=== PATIENT | male | born 1965 | race Caucasian/White ===

== ENCOUNTER 2024-02-10 11:29 | Emergency (ER) | payer SELFPAY ==
[2024-02-10 11:32] VITALS: BP 141/69
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
== END 2024-02-10 13:04 | disposition home or self-care (01) ==
LOC: EMR 11:29
PROVIDERS: EMERGENCY PHYSICIAN Emergency Medicine
DX: S22.31XA Fracture of one rib, right side, initial encounter for closed fracture (principal); V49.40XA Driver injured in collision with unspecified motor vehicles in traffic accident, initial encounter; I10 Essential (primary) hypertension; E53.8 Deficiency of other specified B group vitamins
CPT/HCPCS: 99283; 71101

== ENCOUNTER 2024-04-19 12:26 | Emergency (ER) | payer SELFPAY ==
[2024-04-19 12:28] VITALS: BP 170/87
[2024-04-19 12:53] LABS: % Basophils 0.6 % (0-2); % Immature Granulocytes 0.6 % (0-0.5); % Lymphocytes 13.7 % (20.5-51.1); % Monocytes 6.3 % (1.7-9.3); % Neutrophils 78.8 % (42.2-75.2); Absolute Lymphocytes 0.7 10^3/uL (1.2-3.4); Absolute Monocytes 0.3 10^3/uL (0.1-0.6); Hematocrit 41.7 % (39.0-52.0); Hemoglobin 14.7 g/dL (13.0-18.0); Mean Corp Hgb Conc. 35.3 g/dL (33.0-37.0); Mean Corpuscular Hgb 41.8 pg (27.0-31.0); Mean Corpuscular Volume 118.5 fL (80.0-94.0); Mean Platelet Volume 8.7 fL (7.4-10.4); Nucleated Red Blood Cells % 0 % (-); Platelet Count 110 10^3/uL (130-400); Red Blood Cell Count 3.52 10^6/uL (4.70-6.10); Red Cell Dist. Width 15.1 % (11.5-14.5); White Blood Cell Count 5.1 10^3/uL (4.8-10.8)
[2024-04-19 12:58] LABS: ALT (SGPT) 40 U/L (0-50); AST (SGOT) 98 U/L (17-59); Albumin 3.9 g/dl (3.5-5.0); Alkaline Phosphatase 104 U/L (38-126); Blood Urea Nitrogen 8 mg/dl (9-20); Calcium 8.7 mg/dl (8.4-10.2); Carbon Dioxide 30 mmol/L (22-30); Chloride 103 mmol/L (98-107); Glucose 135 mg/dl (70-99); Potassium 4.1 mmol/L (3.5-5.1); Sodium 140 mmol/L (135-145); Total Bilirubin 1.8 mg/dl (0.2-1.3); Total Protein 7.1 g/dl (6.3-8.2); eGFR > 60.00
[2024-04-19] MEDS: ZOFRAN ODT (ORALLY DISINTEGRATING) 4 MG PO (13:08)
[2024-04-19 13:09] VITALS: BMI 23.8
[2024-04-19 13:10] LABS: COVID-19 Antigen Negative (Negative)
[2024-04-19] MEDS: DUONEB 3 ML INH (13:41)
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
== END 2024-04-19 14:23 | disposition home or self-care (01) ==
LOC: EMR 12:26
PROVIDERS: Student in an Organized Health Care Education/Training Program; EMERGENCY PHYSICIAN Emergency Medicine
DX: J20.9 Acute bronchitis, unspecified (principal); Z11.52 Encounter for screening for COVID-19; I10 Essential (primary) hypertension; M10.9 Gout, unspecified; E53.8 Deficiency of other specified B group vitamins; Z90.49 Acquired absence of other specified parts of digestive tract
CPT/HCPCS: 99283; 94640; 71046; 80053; 85025; 87502; 87811

== ENCOUNTER 2024-05-16 23:13 | Inpatient (IN) | payer OTHER, SELFPAY ==
[2024-05-16 17:34] VITALS: BP 147/90
[2024-05-16 18:08] LABS: % Basophils 0.4 % (0-2); % Immature Granulocytes 0.4 % (0-0.5); % Lymphocytes 10.4 % (20.5-51.1); % Monocytes 8.2 % (1.7-9.3); % Neutrophils 80.6 % (42.2-75.2); Absolute Basophils 0.1 10^3/uL (0-0.2); Absolute Immature Granulocytes 0.1 10^3/uL (0-0.05); Absolute Lymphocytes 1.2 10^3/uL (1.2-3.4); Absolute Neutrophils 9.6 10^3/uL (1.4-6.5); Hematocrit 37.3 % (39.0-52.0); Hemoglobin 13.5 g/dL (13.0-18.0); Mean Corp Hgb Conc. 36.2 g/dL (33.0-37.0); Mean Corpuscular Volume 121.5 fL (80.0-94.0); Mean Platelet Volume 8.9 fL (7.4-10.4); Nucleated Red Blood Cells % 0 % (-); Platelet Count 123 10^3/uL (130-400); Red Blood Cell Count 3.07 10^6/uL (4.70-6.10); Red Cell Dist. Width 14.6 % (11.5-14.5); White Blood Cell Count 11.9 10^3/uL (4.8-10.8)
[2024-05-16 18:09] LABS: Urine Albumin Negative (Neg - Trace); Urine Bilirubin 1+ (Negative); Urine Character Clear (Clear); Urine Color Amber; Urine Glucose Negative (Negative); Urine Ketone Trace (Negative); Urine Leukocyte Trace (Negative); Urine Nitrite Negative (Negative); Urine Occult Blood Negative (Negative); Urine Urobilinogen 2+ (Neg - 1+)
[2024-05-16 18:30] LABS: NT-proBNP 177 pg/ml
[2024-05-16 18:31] LABS: ALT (SGPT) 46 U/L (0-50); AST (SGOT) 122 U/L (17-59); Albumin 4.2 g/dl (3.5-5.0); Alkaline Phosphatase 123 U/L (38-126); Blood Urea Nitrogen 11 mg/dl (9-20); Carbon Dioxide 27 mmol/L (22-30); Chloride 96 mmol/L (98-107); Glucose 93 mg/dl (70-99); Potassium 4.5 mmol/L (3.5-5.1); Sodium 135 mmol/L (135-145); Total Bilirubin 2.3 mg/dl (0.2-1.3); Total Protein 7.2 g/dl (6.3-8.2); eGFR > 60.00
[2024-05-16 18:32] LABS: Lipase 81 U/L (23-300)
[2024-05-16 18:37] LABS: Urine Red Blood Cell 0-2 /HPF (0-2); Urine White Cell 0-2 /HPF (0-5)
--- NOTE | 2024-05-16 19:32 | ED.GENMED ---
History of Present Illness
<ASHLEY Deal - Last Filed: 05/16/24 22:54>
General
Chief Complaint: Swelling
Source: patient
Exam Limitations: none
Time Seen by Provider: 05/16/24 19:30
History of Present Illness
History of Present Illness:
This is a 58 year old male that comes in with c/o left leg swelling. States that on Tuesday night he felt discomfort in the left testicle. States that the discomfort is still there and it is like a pinching discomfort. Then yesterday he noticed that
his left leg was swollen. States that he felt he had a lump in his thigh. States that he is not eating much as he doesn't have any appetite. States that he has had abd pain with nausea, vomiting. States that he also felt lightheaded. Denies any
fever, chills, chest pain, SOB, diarrhea, headache, urinary burning.
Past History
<ASHLEY Deal - Last Filed: 05/16/24 22:54>
Past History
ED Past Medical History: HTN and Other (Gout, malnutrition, alcohol use with B12/folate deficiency. cardiomyopathy, elevated LFt's, Bronchitis with rib fracture)
ED Past Surgical History: Cholecystectomy and Other (Hernia)
Patient has exhibited threatening behavior?: No
Social History
Tobacco: Non-smoker
Alcohol: Daily (Vodka 6 oz)
Drug: Marijuana
Personal:
Living: with roommate (Resides with a roommate)
Employment: Employed
Family History
Family History: Other (Noncontributory)
Review of Systems
<ASHLEY Deal - Last Filed: 05/16/24 22:54>
Review of Systems
All Other Systems: ROS reviewed and negative except as documented in HPI and ROS
Constitutional: Reports no symptoms; Denies fever or chills
EENT: Reports no symptoms
Respiratory: Reports no symptoms; Denies cough or trouble breathing
Cardiac: Reports no symptoms; Denies chest pain
ABD/GI: Reports abdominal pain, nausea and vomiting; Denies diarrhea
: Reports no symptoms; Denies dysuria, frequency or urgency
Musculoskeletal: Reports edema (Bilateral edema Legs l>R. +2 pitting edema)
Skin: Reports no symptoms
Neurological: Reports other (Lightheaded); Denies dizzy or headache
Psychiatric: Reports no symptoms
Phy Exam
<ASHLEY Deal - Last Filed: 05/16/24 22:54>
General Physical Exam
General Presentation: no apparent distress
General age: appears stated age
General Skin: warm and dry
General Habitus: normal
General Mental: alert
General Hydration: appears well hydrated
ENT Exam
ENT Exam: TM's normal, pharynx normal and neck supple
Eye Exam
Eye Exam: EOMI
Cardiovascular Exam
Cardiovascular Exam: regular rate/rhythm, no murmur and normal peripheral pulses
Pulmonary Exam
Pulmonary Exam: lungs clear, no respiratory distress, no rales, chest non tender, no crackles, no rhonchi, no wheezing and no cough
Gastrointestinal Exam
Gastrointestinal Exam: normal bowel sounds, non tender, soft, no organomegaly, no pulsatile mass and non distended
Genitourinary Exam Male
Exam Male: circumcised, no discharge, normal external genitalia, normal testicular exam, no evidence of trauma, no lesions, no testicular swelling and no testicular tenderness
Musculoskeletal Exam
Musculoskeletal Exam: full ROM and edema (+2 pitting edema L>R)
Skin Exam
Skin Exam: normal color, warm/dry and no petechia
Psychiatric Exam
Psychiatric Exam: normal mood/affect
Scores
<ASHLEY Deal - Last Filed: 05/16/24 22:54>
Heart Failure Risk
Heart Failure Risk Score: Not Applicable
Course
<ASHLEY Deal - Last Filed: 05/16/24 22:54>
Orders/Labs/Results
Orders:
Orders
05/16/24 17:38
US Legs, Left [US Periph Venous LOWER Ext LT] Urgent
Comment:
Reason For Exam: swelling
05/16/24 17:58
BNP [NT-proBNP] Urgent
Complete Blood Count/With Diff Urgent
Comprehensive Metabolic Panel Urgent
Lipase Urgent
Urine Culture Reflexed from UA [Urinalysis Reflex To Culture] Urgent
Date Specimen was Collected: 05/16/24
Time Specimen was Collected: 17:37
Urine Microscopic Reflex Cult Urgent
05/16/24 19:32
US Scrotum Urgent
Comment:
Reason For Exam: left testicle swelling
05/16/24 20:55
Ondansetron Orally Disint [Zofran Odt (Orally Disintegrating)] 4 mg .ROUTE .STK-MED ONE
05/16/24 20:56
Ondansetron Orally Disint [Zofran Odt (Orally Disintegrating)] 4 mg PO NOW STA
05/16/24 21:39
CT Abd/pelvis W Iv Cont Urgent
Comment:
Reason For Exam: extensive clot in left leg.
05/16/24 21:51
PT/INR [Prothrombin Time] Urgent
PTT Urgent
Comment: ADD ON
05/16/24 22:48
Consult Vascular Surgery [Vascular Surgery Consult] Urgent
Consulting Provider: Shahbaz Perry
Was physician already notified: Yes
Heparin 7,000 units IV NOW STA
Nursing to Place Non Medication Order As Directed
Physician Order: PTT 6 hours after initial start of Heparin infusion
05/16/24 22:50
Add On- LAB Urgent
Tests Added?: PTT
05/16/24 22:55
Heparin 7,000 units IV PRN PRN
05/16/24 22:56
Heparin 3,500 units IV PRN PRN
05/16/24 23:00
Heparin 13315 Units/250 ml 25,000 units in 250 ml IV PER PROTOCOL
Weight to be used for heparin protocol in kilograms (kg):: 87.4
Protocol:: DVT/PE
PTT Goal Range to be used:: PTT 73 to 111 seconds
Order type:: Initial
INITIAL Infusion Dose (UNITS/KG/hr) & then follow protocol:: 18 units/kg/hr
Infusion Dose in UNITS/hr & then follow protocol (UNITS/hr):: 1,600
INFUSION RATE in mL/hr & then follow protocol (mL/hr):: 16
For DVT/PE algorithm, re-bolus for low PTT?: Yes
PTT less than or equal to 64 seconds:: Re-bolus 80 units/kg (max 10,000units). Increase by 300 units/hr
(+ 3mL/hr)
PTT 64.1 to 72.9 seconds:: Re-bolus 40 units/kg (max 5,000 units). Increase by 200 units/hr
(+ 2mL/hr)
PTT 73 to 111 seconds:: Target Range. No change in rate.
PTT 111.1 to 130.9 seconds:: Decrease rate by 200 units/hr (- 2 mL/hr)
PTT 131 to 199.9 seconds:: HOLD for 1 hr. Then decrease by 300 units/hr (- 3mL/hr)
PTT greater than or equal to 200 seconds:: HOLD for 2 hrs & Notify Provider. Then decrease by 300 units/hr
(- 3mL/hr)
Lab follow-up:: Each change, PTT q6h until 2 consecutive are therapeutic. Then
PTT daily.
Abnormal Lab Results
05/16/24 05/16/24
17:58 21:51
WBC 11.9 H 10^3/uL
(4.8-10.8)
RBC 3.07 L 10^6/uL
(4.70-6.10)
Hct 37.3 L %
(39.0-52.0)
MCV 121.5 H fL
(80.0-94.0)
MCH 44.0 H pg
(27.0-31.0)
RDW 14.6 H %
(11.5-14.5)
Plt Count 123 L 10^3/uL
(130-400)
Abs Immat Gran (auto) 0.1 H 10^3/uL
(0-0.05)
Absolute Neuts (auto) 9.6 H 10^3/uL
(1.4-6.5)
Absolute Monos (auto) 1.0 H 10^3/uL
(0.1-0.6)
Neutrophils % 80.6 H %
(42.2-75.2)
Lymphocytes % 10.4 L %
(20.5-51.1)
PT 14.8 H Sec
(11.4-14.6)
Chloride 96 L mmol/L
(98-107)
Total Bilirubin 2.3 H mg/dl
(0.2-1.3)
AST 122 H U/L
(17-59)
Urine Ketones Trace A
(Negative)
Urine Bilirubin 1+ A
(Negative)
Urine Urobilinogen 2+ A
(Neg - 1+)
Leukocyte Esterase Rfl Trace A
(Negative)
05/16/24 17:58
05/16/24 17:58
Leukocytosis, Plt slightly low. Chloride low. Total gigi elevation. AST elevation (chronic due to alcohol abuse), Urine negative for infection. Lipase normal at 81, PT 14.8 with INR 1.15
Vital Signs
Initial and Last Documented VS:
Initial Vital Signs
Temp Pulse Resp BP Pulse Ox
98.1 F 86 20 147/90 99
05/16/24 17:34 05/16/24 17:34 05/16/24 17:34 05/16/24 17:34 05/16/24 17:34
Last Documented Vital Signs
Temp Pulse Resp BP Pulse Ox
98.1 F 84 17 132/78 95
05/16/24 17:34 05/16/24 23:00 05/16/24 23:00 05/16/24 22:34 05/16/24 23:00
<Gamaliel Lai, DO - Last Filed: 05/16/24 23:05>
Orders/Labs/Results
Orders:
Orders
05/16/24 17:38
US Legs, Left [US Periph Venous LOWER Ext LT] Urgent
Comment:
Reason For Exam: swelling
05/16/24 17:58
BNP [NT-proBNP] Urgent
Complete Blood Count/With Diff Urgent
Comprehensive Metabolic Panel Urgent
Lipase Urgent
Urine Culture Reflexed from UA [Urinalysis Reflex To Culture] Urgent
Date Specimen was Collected: 05/16/24
Time Specimen was Collected: 17:37
Urine Microscopic Reflex Cult Urgent
05/16/24 19:32
US Scrotum Urgent
Comment:
Reason For Exam: left testicle swelling
05/16/24 20:55
Ondansetron Orally Disint [Zofran Odt (Orally Disintegrating)] 4 mg .ROUTE .STK-MED ONE
05/16/24 20:56
Ondansetron Orally Disint [Zofran Odt (Orally Disintegrating)] 4 mg PO NOW STA
05/16/24 21:39
CT Abd/pelvis W Iv Cont Urgent
Comment:
Reason For Exam: extensive clot in left leg.
05/16/24 21:51
PT/INR [Prothrombin Time] Urgent
PTT Urgent
Comment: ADD ON
05/16/24 22:48
Consult Vascular Surgery [Vascular Surgery Consult] Urgent
Consulting Provider: Shahbaz Perry
Was physician already notified: Yes
Heparin 7,000 units IV NOW STA
Nursing to Place Non Medication Order As Directed
Physician Order: PTT 6 hours after initial start of Heparin infusion
05/16/24 22:50
Add On- LAB Urgent
Tests Added?: PTT
05/16/24 22:55
Heparin 7,000 units IV PRN PRN
05/16/24 22:56
Heparin 3,500 units IV PRN PRN
05/16/24 23:00
Heparin 20556 Units/250 ml 25,000 units in 250 ml IV PER PROTOCOL
Weight to be used for heparin protocol in kilograms (kg):: 87.4
Protocol:: DVT/PE
PTT Goal Range to be used:: PTT 73 to 111 seconds
Order type:: Initial
INITIAL Infusion Dose (UNITS/KG/hr) & then follow protocol:: 18 units/kg/hr
Infusion Dose in UNITS/hr & then follow protocol (UNITS/hr):: 1,600
INFUSION RATE in mL/hr & then follow protocol (mL/hr):: 16
For DVT/PE algorithm, re-bolus for low PTT?: Yes
PTT less than or equal to 64 seconds:: Re-bolus 80 units/kg (max 10,000units). Increase by 300 units/hr
(+ 3mL/hr)
PTT 64.1 to 72.9 seconds:: Re-bolus 40 units/kg (max 5,000 units). Increase by 200 units/hr
(+ 2mL/hr)
PTT 73 to 111 seconds:: Target Range. No change in rate.
PTT 111.1 to 130.9 seconds:: Decrease rate by 200 units/hr (- 2 mL/hr)
PTT 131 to 199.9 seconds:: HOLD for 1 hr. Then decrease by 300 units/hr (- 3mL/hr)
PTT greater than or equal to 200 seconds:: HOLD for 2 hrs & Notify Provider. Then decrease by 300 units/hr
(- 3mL/hr)
Lab follow-up:: Each change, PTT q6h until 2 consecutive are therapeutic. Then
PTT daily.
Abnormal Lab Results
05/16/24 05/16/24
17:58 21:51
WBC 11.9 H 10^3/uL
(4.8-10.8)
RBC 3.07 L 10^6/uL
(4.70-6.10)
Hct 37.3 L %
(39.0-52.0)
MCV 121.5 H fL
(80.0-94.0)
MCH 44.0 H pg
(27.0-31.0)
RDW 14.6 H %
(11.5-14.5)
Plt Count 123 L 10^3/uL
(130-400)
Abs Immat Gran (auto) 0.1 H 10^3/uL
(0-0.05)
Absolute Neuts (auto) 9.6 H 10^3/uL
(1.4-6.5)
Absolute Monos (auto) 1.0 H 10^3/uL
(0.1-0.6)
Neutrophils % 80.6 H %
(42.2-75.2)
Lymphocytes % 10.4 L %
(20.5-51.1)
PT 14.8 H Sec
(11.4-14.6)
Chloride 96 L mmol/L
(98-107)
Total Bilirubin 2.3 H mg/dl
(0.2-1.3)
AST 122 H U/L
(17-59)
Urine Ketones Trace A
(Negative)
Urine Bilirubin 1+ A
(Negative)
Urine Urobilinogen 2+ A
(Neg - 1+)
Leukocyte Esterase Rfl Trace A
(Negative)
05/16/24 17:58
05/16/24 17:58
Vital Signs
Initial and Last Documented VS:
Initial Vital Signs
Temp Pulse Resp BP Pulse Ox
98.1 F 86 20 147/90 99
05/16/24 17:34 05/16/24 17:34 05/16/24 17:34 05/16/24 17:34 05/16/24 17:34
Last Documented Vital Signs
Temp Pulse Resp BP Pulse Ox
98.1 F 84 17 132/78 95
05/16/24 17:34 05/16/24 23:00 05/16/24 23:00 05/16/24 22:34 05/16/24 23:00
<ASHLEY Deal - Last Filed: 05/16/24 22:54>
MDM/Problems Addressed
Differential Diagnosis Includes:
DVT, epididymitis,
MDM/Problems Addressed:
This is a 58 year old male that comes in with c/o left left swelling and left testicular discomfort.
will get labs, US of scrotum and left leg.
Spoke with Dr. Perry and reviewed US. He will come see patient. Will also get CT of abd/pelvis with IV contrast. Into see patient. explained that he has extensive clot burden in the left leg. Explained that he will be seen by the Vascular
surgeon and that he will get betting a CT with IV contrast.
Explained to patient that he will be admitted and started on Heparin. He will be seen again tomorrow for Possible Thrombectomy. Hospitalist notified about admission. .
Chronic conditions affecting care:
NA
Acute Exacerbation and/or Progression of Chronic Illness:
NA
<ASHLEY Deal - Last Filed: 05/16/24 22:54>
*Radiology
Radiology exam reviewed: radiology read reviewed (US scrotum-Small right and moderate left hydroceles. Prominent left sided pampiniform plexus with venous thrombosis. US left leg-extensive left lower extremity DVT. CT-No significant acute
abnormality identified in the abd or pelvis, as described above. Left lower extremity DVT is seen to) and other (CT cont- begin at the level of the left common femoral vein. Patient left external iliac vein and more proximal veins. )
*Pulse Oximetry
Patient hypoxic: no
*EKG
Interpreted by ED Provider?: NA
Rate: EKG- N/A
*Dye Room Helper Interpretation
Rate: Dye Room Helper- N/A
*Critical Care Note
Total Time (30-74mins, 75-104mins- exclusive of procedures): Not Applicable
ED Attending Note
<ASHLEY Deal - Last Filed: 05/16/24 22:54>
-
Portions of this chart may have been created with voice recognition software.� Occasional wrong word or��sound alike� substitutions may have occurred due to the inherent limitations of voice recognition software.
<Gamaliel Lai DO - Last Filed: 05/16/24 23:05>
ED Attending Note
I performed the substantive portion of visit, reviewed & personally made and approve the management plan that is documented in note by myself or PAT.: Yes
Discharge Plan
Departure
Patient Disposition: Admit
Date of Disposition: 05/16/24
Time of Disposition: 22:51
Admit to: Telemetry
Presentation/result/management discussed w/ accepting MD/DO: Hospitalist
Patient with high blood pressure during this ER visit?: Yes
Condition: Good
Covid-19: Not Applicable
Discharge Problem:
Extensive DVT left leg
Prescriptions:
No Action
ibuprofen 200 mg Capsule
600 mg PO Q8HPRN PRN (Reason: mild pain)
Referrals:
NONE,* [Family Provider] -
Interventions
Interventions:
*Risk Screen - Suicide Last Done: 05/16/24 17:34
*General Assessment Last Done: 05/16/24 17:34
*Neglect/Abuse Screening Last Done: 05/16/24 17:34
*ED COVID-19 Vaccine History Last Done: 05/16/24 20:35
ED- Cardiac Assessment Last Done: 05/16/24 20:57
ED- Pulmonary Assessment Last Done: 05/16/24 20:57
ED-Skin Assessment Last Done: 05/16/24 20:57
Discharge Date and Time
Print Language: MONEGASQUE
[2024-05-16] MEDS: ZOFRAN ODT (ORALLY DISINTEGRATING) 4 MG PO (20:56)
[2024-05-16 20:57] VITALS: BMI 25.4
[2024-05-16 21:48] VITALS: BP 135/78
[2024-05-16 22:19] LABS: INR 1.15; PT 14.8 Sec (11.4-14.6)
[2024-05-16 22:34] VITALS: BP 132/78
[2024-05-16 22:59] LABS: APTT 27.2 Sec (23.4-35.0)
[2024-05-16 23:00] VITALS: BP 119/74
[2024-05-16] MEDS: HEPARIN 7000 UNITS IV (23:19)
--- NOTE | 2024-05-16 23:20 | HPS.HSE ---
Family Physician
-
Family Physician: * NONE
Chief Complaint
-
Left Lower Ext and Scrotal Swelling
History of Present Illness
Patient is a 58 y/o male past medical history of non-ischemic cardiomyopathy with recovered EF and alcohol use disorder who presents with increased swelling of his left lower extremity and scrotum. Patient reports two night ago he noted a bulge in
his groin area associated with some scrotal swelling. Yesterday he noted his left lower extremity to be swollen. Work-up in the emergency department revealed an extensive left lower extremity DVT. Patient denies any prior history of blood clots.
He denies any recent travel or recent surgeries.
Medical History
Past Medical History
Past Medical History: Reports Other
Additional Past Medical History:
Alcohol Use Disorder
Non-Ischemic Cardiomyopathy
Gout
Past Surgical History: Reports Other
Additional Past Surgical History:
Cholecystectomy
Umbilical Herniorrhaphy
Social History
Tobacco: Non-smoker
Alcohol: Daily (6-8 ounces of vodka nightly)
Drug: Marijuana and Other (No history of IVDA)
Family History
Family History: Other (Father / Brother / Sister - Cardiomyopathy)
Allergies / Home Medications
Allergies reflects when Allergies were last updated in [facility].
Home Medications with original date entered in [facility]
Allergy/Medication List:
Allergies
Allergy/AdvReac Type Severity Reaction Status Date / Time
Penicillins Allergy unknown - Verified 05/16/24 17:34
as a child
Home Medications
ibuprofen 200 mg capsule 600 mg PO Q8HPRN PRN mild pain 05/16/24
Review of Systems
-
A 12 point ROS was completed and negative except as noted: Yes
Constitutional: Denies Fever, Weight Loss or Chills
Respiratory: Denies Trouble Breathing
Cardiac: Denies Chest Pain or Palpitations
Abdomen/GI: Reports Anorexia
Physical Exam
Vital Signs
Vital Signs
Temp Pulse Resp BP Pulse Ox
98.1 F 86 17 119/74 98
05/16/24 17:34 05/16/24 23:15 05/16/24 23:15 05/16/24 23:00 05/16/24 23:15
Physical Exam
General: Comfortable and Conversant
HEENT: Anicteric and Moist mucous membranes
Respiratory: Clear and Non Labored Respirations
Cardiac: S1/S2 and Regular Rhythm; No Tachycardia
GI: Soft and Non Tender
Rectal: Deferred by Provider
Musculoskeletal: No Clubbing, No Cyanosis and Other (LLE wrapped in compression pablo wrap)
Skin: Warm and Dry
Neuro: Awake, Alert, Oriented and Nonfocal/grossly intact
Laboratory Results
-
05/16/24 17:58
05/16/24 17:58
Laboratory Results
PT 14.8 Sec (11.4-14.6) H 05/16/24 21:51
INR 1.15 05/16/24 21:51
APTT Cancelled 05/16/24 22:48
Total Bilirubin 2.3 mg/dl (0.2-1.3) H 05/16/24 17:58
AST 122 U/L (17-59) H 05/16/24 17:58
ALT 46 U/L (0-50) 05/16/24 17:58
Alkaline Phosphatase 123 U/L (38-126) 05/16/24 17:58
Lipase 81 U/L (23-300) 05/16/24 17:58
Data Reviewed
-
Lab Data: Labs Reviewed by me
Impression/Plan
-
Extensive Left Lower Ext DVT involving left common femoral, femoral, popliteal and posterior tibial veins, as well as enous thrombosis of the left sided pampiniform plexus
-At this point in time appears to be unprovoked
-Continue heparin drip
-Vascular Surgery consulted by ED and planning for thrombectomy in AM
-Consult Urology
Alcohol Use Disorder
-Continue alcohol withdrawal protocol
-Continue thiamine and folic acid
Non-Ischemic Cardiomyopathy with Recovered EF
-Echo Jun 2023 EF 55-60%
-Monitors Is&Os
Code Status: Full Code
[2024-05-16] MEDS: HEPARIN 25000 UNITS/250 ML IV (23:21)
--- NOTE | 2024-05-16 23:43 | W.PN.UPDATE ---
Update Note
Progress Note Update
This is an addendum to the H&P written by ANDREW Capone on 05/16/2024.
58-year-old male without any notable past medical history presenting with left testicle discomfort, left groin swelling and left leg swelling. Peripheral venous ultrasound showed extensive left lower extremity DVT. CT abdomen pelvis shows DVT
beginning at the level of the left common femoral vein. Scrotal ultrasound shows small right and moderate left hydroceles, prominent left-sidedp paphiniform plexus with venous thrombosis.
Unprovoked DVT unclear etiology. Heparin drip. N.p.o. for thrombectomy tomorrow as per vascular. Urology consulted.
[2024-05-17] VITALS (33 sets, daily range): BP systolic 106–149; BP diastolic 65–96; BMI 18.9
[2024-05-17] MEDS: ZOFRAN 4 MG IV (01:59)
--- NOTE | 2024-05-17 02:50 | PTCARENOTE ---
Received patient from ED RN to room 3365 via stretcher. Patient received with heparin gtt at 1600 units/hr. Pt's AAOx3 and able to make his needs known. MSAS 1. Last alcoholic drink per the patient was on Tuesday 05/15. complains of nausea. The
patient asked to get OOB to the bathroom. Bedrest order, DVT, and heparin gtt provided. Risk for DVT breaking and heparin bleeding risk discussed with the patient. Pt verbalized understanding. Denies pain. VSS on the monitor. Doppler pulse to left
femoral artery. +3 edema to left lower extremity. Left leg is wrapped with pablo bandage. Pt has occasional and nonproductive cough. Diminished breath sounds at the bases. +BS. Urinal at the bedside. Zofran ordered and administered. Bed in the lowest
position. Call hoyt and urinal are within reach. Full assessment as noted on the flowsheet.
[2024-05-17 04:11] LABS: Mean Corp Hgb Conc. 36.6 g/dL (33.0-37.0); Mean Corpuscular Hgb 42.6 pg (27.0-31.0); Mean Corpuscular Volume 116.5 fL (80.0-94.0); Red Blood Cell Count 2.49 10^6/uL (4.70-6.10); Red Cell Dist. Width 14.8 % (11.5-14.5); White Blood Cell Count 7.1 10^3/uL (4.8-10.8)
[2024-05-17 04:14] LABS: Hemoglobin 10.6 g/dL (13.0-18.0)
--- NOTE | 2024-05-17 04:32 | PTCARENOTE ---
Patient reassessed. Tachypneic on the monitor with RR 25-33. Pt's SpO2 drops to 88% on RA while asleep, then recovers to 94%. Offered oxygen via nasal cannula to the patient and explained need. The patient declined. HR in the 70s. Pt's Hgb 10.6. SAP DATA ANALYST
made aware. No further changes.
[2024-05-17 04:51] LABS: Blood Urea Nitrogen 14 mg/dl (9-20); Calcium 8.2 mg/dl (8.4-10.2); Carbon Dioxide 27 mmol/L (22-30); Chloride 100 mmol/L (98-107); Estimated Creatinine Clearance > 125 ml/min; Glucose 91 mg/dl (70-99); Magnesium 1.4 mg/dl (1.6-2.3); Phosphorus 3.5 mg/dl (2.5-4.5); Potassium 4.3 mmol/L (3.5-5.1); Sodium 132 mmol/L (135-145); eGFR > 60.00
[2024-05-17] MEDS: MAGNESIUM SULFATE 50 IV (05:14)
--- NOTE | 2024-05-17 05:40 | PTCARENOTE ---
Patient's magnesium is 1.4. Magnesium sulfate 2 gram ordered and administered.
[2024-05-17 05:42] LABS: APTT 157.5 Sec (23.4-35.0)
[2024-05-17 07:06] LABS: Mean Platelet Volume 9.6 fL (7.4-10.4); Platelet Count 86 10^3/uL (130-400)
--- NOTE | 2024-05-17 07:07 | CON.INTV ---
Consultation
Consultation Request
Date/Time Consultation Requested: 05/17/24
Date/Time Consultation Performed: 05/17/24
Performing Provider: Cheri
Reason for Consultation: ICU
Medical History
-
History of Present Illness:
Patient is a 58-year-old male with previous history of any cardiomyopathy preserved EF presenting with increased swelling of his left lower extremity and scrotum. Ultrasound performed in the emergency room demonstrating extensive left-sided DVT.
Placed on IV heparin gtt and admitted to ICU for thrombectomy 05/17/24.
Past Medical History
Past Medical History: Other (see list below)
Social History
Tobacco: Non-smoker
Alcohol: Daily
Drug: None
Family History
Family History: Reviewed & Not Pertinent
Allergies / Home Medications
Allergies
Allergy/AdvReac Type Severity Reaction Status Date / Time
Penicillins Allergy unknown - Verified 05/16/24 17:34
as a child
Home Medications
�Medication �Instructions �Recorded �Confirmed �Last Taken �Type
ibuprofen 200 mg capsule 600 mg PO Q8HPRN PRN mild pain 05/16/24 05/16/24 1 Week Ago History
~05/09/24
Review of Systems
-
History Source: Patient
All other systems: Negative unless noted
Vitals / Labs / Diagnostic Testing
Vital Signs
Temp Pulse Resp BP Pulse Ox
98 F 75 24 118/65 91
05/17/24 04:30 05/17/24 04:15 05/17/24 04:15 05/17/24 04:00 05/17/24 04:15
Lab Data
05/17/24 03:49
05/17/24 03:49
Laboratory Results
05/16/24 05/16/24 05/17/24
21:51 22:48 05:18
PT 14.8 H
INR 1.15
APTT 27.2 Cancelled 157.5 H*
Diagnostic Testing:
Physical Exam
-
HEENT: Normocephalic, Anicteric and Moist Mucous Membranes
Cardiovascular: S1/S2 and Regular Rhythm
Respiratory: Clear and Non-Labored Respirations
GI: Soft, Non Distended and Non Tender
Neurology: Awake, Alert, Oriented, AO x 3 and No Motor Deficits
Skin: Warm, Dry and Good Color
General: Comfortable and Other (NAD)
Assessment
-
Patient is a 58-year-old male with previous history of any cardiomyopathy preserved EF presenting with increased swelling of his left lower extremity and scrotum. Ultrasound performed in the emergency room demonstrating extensive left-sided DVT.
Placed on IV heparin gtt and admitted to ICU for thrombectomy 05/17/24.
Acute LLE DVT
Scrotal swelling/small right and moderate left hydroceles
Thrombocytopenia
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
Alcohol Use Disorder-Daily use (6-8 ounces of vodka nightly)
Non-Ischemic Cardiomyopathy
Gout
Cholecystectomy
Umbilical Herniorrhaphy
Plan
No current signs of metabolic encephalopathy or MS changes/following commands
Denies pain at this time.
ETOH use disorder noted, MSAS added, no tremors noted
Pain/sedation: MSAS PRN
RASS goals: 0
Hemodynamically stable, not requiring pressors.
Cardiac history reviewed--NICM with recovered EF
Prior ECHO reviewed indicating normal function
Monitor on telemetry
Oxygen needs: stable on RA
Prior history of lung disease: none
Supplemental O2 as indicated to maintain sats > 89%
CXR/CT reviewed indicating NAD
NPO, resume diet when able/postop
Order Picker recommendations
Aspiration precautions, HOB > 30 degrees
Speech therapy eval can be considered if at elevated risk
GI prophylaxis if indicated for mechanical ventilation >48 hours, prior history of GERD, stress ulcer formation in the critically ill
Creat at baseline, no history of renal disease
Void trials
Follow urine output, critical I/Os
Replete electrolytes as needed
No signs/symptoms suspicious for infectious etiology at this time
Observe off antibiotics for now
Follow fever trend, WBC count
LLE DVT, no history of VTE in past
CBC stable, plt count noted--likely from heparin, can hold if <50
Planning for thrombectomy, vasc following
DVT prophylaxis as assessed based on risk, including mechanical SCDs
Can transfuse if indicated for Hb <7, plt < 10
INR WNL
No prior h/o diabetes or thyroid disease
Monitor accuchecks PRN/SS coverage if needed
We will follow
Diagnostic Data
Chest X-Ray: 04/19/24- No acute cardiopulmonary process.
CT Scan: AP 05/16/24- 1. No significant acute abnormality identified in the abdomen or pelvis, as described above.
2. Left lower extremity DVT is seen to begin at the level of the left common femoral vein. Patent left external iliac vein and more proximal veins.
LE US 05/16/24- Findings: Occlusive thrombus throughout the left common femoral, femoral, and popliteal veins, as well as in the left posterior tibial vein. Nonvisualization of the left peroneal vein. There is also occlusive thrombus within the left
greater saphenous vein at the saphenofemoral junction extending through the proximal to mid thigh.
Echo: 07/18/23- Normal biventricular size and systolic function without regional wall motion abnormality. Estimated LVEF 55-60%. No significant valve disease. Compared to 03/19/22: LVEF has improved from 35-40% to 55-60%, and apical wall motion
abnormalities have resolved.
PFT's:
Reports and relevant images were personally reviewed.
-----
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
--- NOTE | 2024-05-17 07:34 | PTCARENOTE ---
vitals filed from previous shift, unable to verify, not physically present.
--- NOTE | 2024-05-17 07:43 | CON.VAS ---
Consultation
Consultation Request
Date/Time Consultation Performed: 05/17/2024 0800
Requesting Provider: Hospitalist
Performing Provider: Sarah Jimenes NP-Cassie for Beto Killian MD
Reason for Consultation: Extensive left lower extremity edema/DVT
Medical History
-
Chief Complaint: Left lower extremity DVT
History of Present Illness:
This is a 58-year-old male with unprovoked left lower extremity DVT who reports that symptoms started 2 days ago. Noted symptoms in his left side of the scrotum as well as left leg significant swelling. That is what prompted him to come to the
emergency room. No provoking factors. Denies prolonged car rides. Denies prolonged flights. No recent hospitalizations. No recent illnesses. No history of malignancies that he is aware of. No prior DVTs. No family history of DVTs.
On exam left lower extremity thigh and calf are soft (wrapped currently) but easily compressible. Compartments all soft. Feet are warm and pink and well-perfused. Motor/sensory fully intact.
Duplex reviewed. CT scan reviewed. Extensive left lower extremity DVT, but does not extend above the common femoral. It is however occlusive in the common femoral vein.
Note platelets are in the 80,000 range. However looking back patient has had chronic thrombocytopenia.
Plan/acute unprovoked DVT.
� Recommend hematology evaluation for unprovoked DVT as well as thrombocytopenia.
� Discussed with patient management of acute DVT. Discussed anticoagulation and compression. Discussed iliofemoral DVT management with potential for catheter directed thrombolysis for this subset of DVTs to mitigate post thrombotic syndrome
symptoms down the line. He is 58 years old and therefore it is reasonable to offer him that. I discussed these options with them. Discussed catheter-based procedures including catheter-based thrombolysis as well as mechanical thrombectomy. He
has no contraindications to thrombolysis (denies any recent stroke/head bleed/GI bleeds/major surgeries recently/other). He understands all and understands his options. He wishes to proceed with an invasive therapy. Will plan catheter-based
possible thrombolysis versus mechanical thrombectomy today.
Past Medical History
Past Medical History: Other ( cardiomyopathy preserved EF)
Social History
Tobacco: Non-Smoker
Alcohol: Chronic Alcoholic
Allergies / Home Medications
Allergy/AdvReac Type Severity Reaction Status Date / Time
Penicillins Allergy unknown - Verified 05/16/24 17:34
as a child
�Medication �Instructions �Recorded �Confirmed �Type
ibuprofen 200 mg capsule 600 mg PO Q8HPRN PRN mild pain 05/16/24 05/16/24 History
Review of Systems
-
History Source: Patient
Constitutional: Reports No Symptoms
EENT: Reports No Symptoms
Respiratory: Reports No Symptoms
Abdomen/GI: Reports No Symptoms
: Reports Other (left sided scrotal edema )
Musculoskeletal: Reports Edema (left lower extremity edema )
Skin: Reports No Symptoms
Neurological: Reports No Symptoms
Endocrine: Reports No Symptoms
Physical Exam
Vital Signs
Temp Pulse Resp BP Pulse Ox
98.2 F 76 13 118/71 94
05/17/24 07:35 05/17/24 07:30 05/17/24 07:30 05/17/24 07:00 05/17/24 07:35
Lab Results
05/17/24 03:49
05/17/24 03:49
[id number] Pept 177 pg/ml 05/16/24 17:58
Physical Exam
General: No Apparent Distress and Comfortable
HEENT: Normocephalic, Anicteric and Atraumatic
Cardiac: Negative JVD
GI: Soft, Non Tender and Non Distended
Musculoskeletal: Edema (+2 LLE edema )
Skin: Warm and Dry
Neuro: AO x 3
Pulses: Bilateral Femoral: +2 and Right Dorsalis Pedis: +2
Assessment / Plan
-
Assessment: 58 year old male with unprovoked DVT
Plan:
Recommend hematology evaluation for unprovoked DVT as well as thrombocytopenia
Discussed with patient management of acute DVT. Discussed anticoagulation and compression. Discussed iliofemoral DVT management with potential for catheter directed thrombolysis for this subset of DVTs to mitigate post thrombotic syndrome
symptoms down the line. He is 58 years old and therefore it is reasonable to offer him that. Discussed catheter-based procedures including catheter-based thrombolysis as well as mechanical thrombectomy. He has no contraindications to thrombolysis
(denies any recent stroke/head bleed/GI bleeds/major surgeries recently/other). He understands all and understands his options.
He wishes to proceed with an invasive therapy. Will plan catheter-based possible thrombolysis versus mechanical thrombectomy today.
NPO
I performed this shared service with the attending. I evaluated the patient [id number] and have entered clinical documentation as shown in the encounter note. I performed the following component(s): history and physical exam. Note that medical
decision making is not final until attested by vascular attending.
--- NOTE | 2024-05-17 07:44 | W.PN.UPDATE ---
Update Note
Progress Note Update
Seen and examined with MAEVE Jimenes. Full consultation to follow. Briefly 58-year-old male with unprovoked left lower extremity DVT about 2 days ago symptoms started. Noted symptoms in his left side of the scrotum as well as left leg significant
swelling. That is what prompted him to come to the emergency room. No provoking factors. Denies prolonged car rides. Denies prolonged flights. No recent hospitalizations. No recent illnesses. No history of malignancies that he is aware of.
No prior DVTs. No family history of DVTs. On exam left lower extremity thigh and calf are soft (wrapped currently) but easily compressible. Compartments all soft. Feet are warm and pink and well-perfused. Motor/sensory fully intact.
Duplex reviewed. CT scan reviewed. Extensive left lower extremity DVT, but does not extend above the common femoral. It is however occlusive in the common femoral vein.
Note platelets are in the 80,000 range. However looking back patient has had chronic thrombocytopenia.
Plan/acute unprovoked DVT.
� Recommend hematology evaluation for unprovoked DVT as well as thrombocytopenia.
� Discussed with patient management of acute DVT. Discussed anticoagulation and compression. Discussed iliofemoral DVT management with potential for catheter directed thrombolysis for this subset of DVTs to mitigate post thrombotic syndrome
symptoms down the line. He is 58 years old and therefore it is reasonable to offer him that. I discussed these options with them. Discussed catheter-based procedures including catheter-based thrombolysis as well as mechanical thrombectomy. He
has no contraindications to thrombolysis (denies any recent stroke/head bleed/GI bleeds/major surgeries recently/other). He understands all and understands his options. He wishes to proceed with an invasive therapy. Will plan catheter-based
possible thrombolysis versus mechanical thrombectomy today.
--- NOTE | 2024-05-17 07:54 | W.PN.HOSP.TC ---
Today's Communication/Plan
-
IV fluids
Monitor for alcohol withdrawal
Psychiatry consult
N.p.o.
Assessment / Plan
Assessment / Plan
Gen-AAOx3, NAD
HEENT-NC, AT, anicteric, clear oral mm
Neck-supple
CV-reg, no M, +S1/S2
Lungs-clear B/L
Abd-soft, NT, ND
Ext-no edema, left lower extremity Alexei wrap
Musculoskeletal-no cyanosis, clubbing
Skin-warm and dry
Neuro-grossly non-focal
Psych-calm, cooperative
Acute extensive left lower extremity DVT -unprovoked apparently. Ultrasound confirms occlusive thrombus throughout the left common femoral, femoral, and popliteal veins, as well as left posterior tibial vein. Currently on IV heparin infusion.
Vascular surgery planning on thrombectomy today. Anticipate long-term anticoagulation on discharge.
Hyponatremia -132 today. Suspect hyponatremia related to alcohol abuse. Differential also includes volume depletion. Normal saline IV fluid ordered.
Hypomagnesemia -replete intravenously.
Bilateral hydroceles -related to extensive DVT. I see no indication for urology consult. Discussed with Dr. Olivier.
Severe alcohol use disorder -Daily drinker. High risk for alcohol withdrawal syndrome. Continue alcohol withdrawal protocol. Counseled on strict need for abstinence given need for anticoagulation on discharge. High risk for bleeding. Patient
seems to understand and wants to quit. Will request psychiatry consult for assistance.
High AST to ALT ratio suggests ongoing drinking.
Hx pancytopenia -white blood cell count currently normal but other parameters are low. Differential diagnosis includes alcohol induced bone marrow suppression versus underlying cirrhosis versus other causes. Strict alcohol abstinence recommended
and will need ongoing follow-up after discharge. Monitor platelet count closely on anticoagulation, 86,000 today.
Hx Gout
History of nonischemic cardiomyopathy -recovered EF.
Marijuana use disorder
Full code
Anticipated Discharge: > 48 hours
Subjective/Interval History
-
Date of Service: May 17, 2024
Patient seen and examined. No complaints currently other than thirst.
Objective Data
-
Labs:
Laboratory Results
05/16/24 05/16/24 05/17/24
21:51 22:48 03:49
WBC 7.1
Hgb 10.6 L D
Hct 29.0 L
Plt Count 86 L D
PT 14.8 H
INR 1.15
APTT 27.2 Cancelled
Sodium 132 L
Potassium 4.3
Chloride 100
Carbon Dioxide 27
BUN 14
Creatinine 0.7
Glucose 91
Calcium 8.2 L
05/17/24 05/17/24
05:18 12:45
WBC
Hgb
Hct
Plt Count
PT
INR
APTT 157.5 H* Pending
Sodium
Potassium
Chloride
Carbon Dioxide
BUN
Creatinine
Glucose
Calcium
Vital Signs:
Vital Signs
Temp Pulse Resp BP Pulse Ox
98.2 F 76 13 118/71 94
05/17/24 07:35 05/17/24 07:30 05/17/24 07:30 05/17/24 07:00 05/17/24 07:35
I&O
05/16/24 05/17/24 05/18/24
06:59 06:59 06:59
Intake Total 64 / 64 50 / 50
Balance 64 / 64 50 / 50
Review of Systems
-
History Source: Patient
All other systems: Reviewed and negative
[2024-05-17] MEDS: NSS 1000 IV ×2 (08:04→19:44)
[2024-05-17] MEDS: THIAMINE INJECTION 200 MG IV ×2 (08:04→19:52)
[2024-05-17] MEDS: FOLVITE 1 MG PO (08:04)
--- NOTE | 2024-05-17 08:30 | PTCARENOTE ---
recd pt 0715 handoff in room, pulses verified bilat LE. heparin gtt infuses new rate, IV sites both intact. in good spirits, denies symptoms of w/d at this time, reviewed plan. seen by vascular surgical team, aware of plans for OR later today.
discussed activity with team, okay with BSC or stand to void if needed at this time preop. per vascular order, clear liquids until 11 am then NPO for OR later. OOB to bsc for bm mixed with urine large amounts of both. back to bed, gait steady,
pablo wrap maintained LLE. rest of assessment as documented.
[2024-05-17 08:38] LABS: Direct Bilirubin 0.6 mg/dl (0.0-0.4)
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
--- NOTE | 2024-05-17 12:30 | PTCARENOTE ---
seen by Dr. Alatorre, sleeping unless disturbed. NPO for OR since 1100. call hoyt in reach. CMS to LLE unchanged, remains wrapped and elevated. PTT drawn and sent.
--- NOTE | 2024-05-17 13:06 | CM ---
CM following re: discharge planning.
Discussed in Rounds, reviewed pt's chart, met with pt.
Pt is a 58 year old male, admitted with primary dx of Acute extensive left lower extremity DVT with significant h/o alcohol abuse.
Pt reports he lives with a room mate in a 2SH, 2 steps to enter, has 2 grown children. 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 Pt admitted to significant h/o alcohol abuse, has met with [facility] in the past. pt
stated he signed in with [facility] outpatient [facility] program in the past and never went there. Pt expressed his agreement to meet with [facility] team to discuss available resources. Pt stated 'I am not drinking anymore because of what happened to me'.
Pt corrected himself that he will not drink anymore and last drink he had day prior to admission to .
Pt agrees to meet with [facility] team[facility] A referral to [facility] made, spoke to CRS Dameon and he will meet with pt tomorrow. Pt is to OR today.
Pt has no insurance, [facility] following. Per previous notes, pt was referred to [facility] and pt stated he heard about it and never been there. CM called [facility] and left a message regarding referring the pt to them.
Psychiatry consult noted.
D/C plan: home with [facility] to follow and to follow up with [facility]
CM will follow with discharge plan updates as hospitalization progresses
[2024-05-17 13:19] LABS: APTT 78.7 Sec (23.4-35.0)
[2024-05-17] MEDS: HEPARIN 25000 UNITS/250 ML IV (17:12)
--- NOTE | 2024-05-17 17:23 | PTCARENOTE ---
sent to OR with OR staff. 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 heparin continues as prescribed. in good spirits. visited with clergy. questions answered.
--- NOTE | 2024-05-17 17:25 | W.SUR.PREOP ---
Pre-Operative Surgical Note
-
I have examined this patient prior to the performance of the scheduled procedure.
The patient's condition is unchanged from the time of the current History and
Physical and the patient is able to undergo the scheduled procedure.
[2024-05-17] MEDS: HEPARIN 25000 UNITS/250 ML VEN SHEATH (18:45)
[2024-05-17] MEDS: CATHFLO/ACTIVASE 16 ML INF CATH ×2 (18:45→22:23)
[2024-05-17] MEDS: CATHFLO/ACTIVASE 16 MG INF CATH ×2 (18:45→22:23)
--- NOTE | 2024-05-17 18:58 | OR.RPT ---
Operative Report
Operative Report
PROCEDURE DATE: 05/17/2024
Preoperative diagnosis: Acute left lower extremity DVT involving complete occlusion of the left common femoral vein.
Postoperative diagnosis: Same
Procedure:
1. Duplex assisted left popliteal venous access.
2. Left lower extremity ascending venogram and central venogram.
3. Initiation of catheter directed thrombolysis.
Surgeon: Constantin
Volunteer Manager: None
Complications: None
Anesthesia: Local, sedation
Indications for procedure:
Patient with acute DVT and significant swelling/pain. Given common femoral involvement, we discussed the option of catheter directed thrombolysis or mechanical thrombectomy. Risk/benefits/alternatives were also discussed. Patient understood all
wish to proceed.
Description of procedure:
Patient was identified, brought to the operating room. Placed on the table in the PRONE position. After the adequate administration of anesthesia, the patient was prepped and draped in the standard surgical fashion. A standard preoperative
timeout was undertaken and everybody was in agreement with the plan.
The left popliteal vein was punctured with a micropuncture kit under direct duplex ultrasound guidance. A 8 Uzbek sheath was then advanced over a 0.035 inch wire. Ascending venogram was obtained that demonstrated significant occlusion/clot
throughout the femoral vein and common femoral vein. I great difficulty actually advancing my wire initially in the distal femoral vein more centrally. However using a flopping on hydrophilic wire and a glide catheter was finally able to advance
my wire. It appeared to follow the course of the normal femoral vein. However advancing my catheter was slightly tough (this was just a 4 Uzbek glide catheter). I advanced the catheter though to the external iliac vein and a central venogram was
obtained which demonstrated patent central venous system. There was clot however noted in the common femoral vein that appeared to be occlusive. Given the difficulty I had advancing my 4 Uzbek glide catheter, I felt that a mechanical thrombectomy
catheter/system would be too challenging to pass through here. Therefore I then exchanged for a Storq wire and then a 5 Uzbek 40 cm infusion length multi-sidehole infusion catheter. The distal aspect/central aspect was positioned at the femoral
head just at the end of the clot. In the proximal/peripheral most aspect was positioned just outside the sheath. 6 mg of tPA was instilled through this catheter as a bolus. The sheath was then hooked up to a heparin drip at 500 units/h. The
catheter was hooked up to a tPA infusion at 1 mg/h. The sheath was secured to the skin and the catheter secured to the sheath.
The patient tolerated procedure well.
[2024-05-17 19:09] LABS: Hepatitis C Antibody Negative (Negative)
--- NOTE | 2024-05-17 19:20 | PTCARENOTE ---
back from OR at 1845, handoff with alteplase/ns, sheath heparin. IV fluids as ordered. see vascular checks. denies urge to void, no c/o pain. requesting 'food', clear liquids given as ordered. positioned for comfort. aware to keep L leg
straight. tegaderms maintained posterior L leg. family visiting.
[2024-05-17] MEDS: NSS 1000 INF CATH (19:42)
[2024-05-17] MEDS: NSS IV (19:43)
[2024-05-17] MEDS: VANCOCIN 200 IV (19:52)
[2024-05-17 20:14] LABS: Hematocrit 28.4 % (39.0-52.0); Hemoglobin 10.5 g/dL (13.0-18.0); Platelet Count 72 10^3/uL (130-400)
[2024-05-17 20:26] LABS: INR 1.14; PT 14.6 Sec (11.4-14.6)
[2024-05-17 20:27] LABS: APTT 35.6 Sec (23.4-35.0); Fibrinogen 234 MG/DL (199-459)
--- NOTE | 2024-05-17 22:35 | PTCARENOTE ---
Rec'd care of patient at 1930. Patient alert and oriented. VSS. NSR on tele monitor. Hand off validation with day shift RN for tPA/Heparin through popliteal vein catheter/sheath. Patient verbalizing understanding that LLE must remain straight. DP
pulse palpable. Extremity pink and warm.
[2024-05-18] VITALS (28 sets, daily range): BP systolic 101–159; BP diastolic 62–108; BMI 25.3
--- NOTE | 2024-05-18 00:12 | PTCARENOTE ---
Assessment unchanged. VSS.
--- NOTE | 2024-05-18 01:23 | PTCARENOTE ---
No void since post op. Patient denying urge to void throughout shift. Urinal provided and patient encouraged to try and go. Patient able to void 222 cc's of jim urine.
[2024-05-18] MEDS: CATHFLO/ACTIVASE 16 MG INF CATH ×4 (02:09→14:03)
[2024-05-18] MEDS: CATHFLO/ACTIVASE 16 ML INF CATH ×4 (02:09→14:03)
[2024-05-18 02:20] LABS: Hematocrit 27.3 % (39.0-52.0); Hemoglobin 10.1 g/dL (13.0-18.0); Mean Corpuscular Hgb 43.7 pg (27.0-31.0); Mean Corpuscular Volume 118.2 fL (80.0-94.0); Mean Platelet Volume 9.2 fL (7.4-10.4); Platelet Count 64 10^3/uL (130-400); Red Blood Cell Count 2.31 10^6/uL (4.70-6.10); Red Cell Dist. Width 14.8 % (11.5-14.5)
[2024-05-18 02:33] LABS: APTT 34.4 Sec (23.4-35.0); Fibrinogen 210 MG/DL (199-459); INR 1.16; PT 14.8 Sec (11.4-14.6)
[2024-05-18 02:44] LABS: ALT (SGPT) 30 U/L (0-50); AST (SGOT) 79 U/L (17-59); Albumin 2.7 g/dl (3.5-5.0); Alkaline Phosphatase 76 U/L (38-126); Blood Urea Nitrogen 12 mg/dl (9-20); Calcium 7.8 mg/dl (8.4-10.2); Carbon Dioxide 26 mmol/L (22-30); Chloride 103 mmol/L (98-107); Direct Bilirubin 0.9 mg/dl (0.0-0.4); Estimated Creatinine Clearance > 125 ml/min; Glucose 82 mg/dl (70-99); Magnesium 1.7 mg/dl (1.6-2.3); Sodium 132 mmol/L (135-145); Total Bilirubin 2.1 mg/dl (0.2-1.3); Total Protein 5.1 g/dl (6.3-8.2); eGFR > 60.00
[2024-05-18] MEDS: MAGNESIUM SULFATE 100 IV (05:40)
--- NOTE | 2024-05-18 07:10 | W.PN.INTV ---
Today's Communication / Plan
Recommendations
s/p lytic placement, doing well
No pain, tylenol PRN
Plan for return to OR today, remains NPO
Can advance diet when cleared by vas team
Assessment
-
Patient is a 58-year-old male with previous history of any cardiomyopathy preserved EF presenting with increased swelling of his left lower extremity and scrotum. Ultrasound performed in the emergency room demonstrating extensive left-sided DVT.
Placed on IV heparin gtt and admitted to ICU for thrombectomy 05/17/24.
Acute LLE DVT s/p Initiation of catheter directed thrombolysis 05/17/24
Scrotal swelling/small right and moderate left hydroceles
Thrombocytopenia
Conditions present OR ASSISTANT
Alcohol Use Disorder-Daily use (6-8 ounces of vodka nightly)
Non-Ischemic Cardiomyopathy
Gout
Cholecystectomy
Umbilical Herniorrhaphy
Plan
No current signs of metabolic encephalopathy or MS changes/following commands
Denies pain at this time.
ETOH use disorder noted, MSAS added, no tremors noted
Pain/sedation: MSAS PRN
RASS goals: 0
Hemodynamically stable, not requiring pressors.
Cardiac history reviewed--NICM with recovered EF
Prior ECHO reviewed indicating normal function
Monitor on telemetry
Oxygen needs: stable on RA
Prior history of lung disease: none
Supplemental O2 as indicated to maintain sats > 89%
CXR/CT reviewed indicating NAD
NPO, resume diet when able/postop
Oncology Social Work recommendations
Aspiration precautions, HOB > 30 degrees
Speech therapy eval can be considered if at elevated risk
GI prophylaxis if indicated for mechanical ventilation >48 hours, prior history of GERD, stress ulcer formation in the critically ill
Creat at baseline, no history of renal disease
Void trials
Follow urine output, critical I/Os
Replete electrolytes as needed
No signs/symptoms suspicious for infectious etiology at this time
Observe off antibiotics for now
Follow fever trend, WBC count
LLE DVT, no history of VTE in past
s/p Initiation of catheter directed thrombolysis 05/17/24
Return to OR today for LLE venogram, lysis catheter check, possible removal, possible stent/OR ASSISTANT
CBC stable, plt count noted--likely from heparin, can hold if <50
Planning for thrombectomy, vasc following
DVT prophylaxis as assessed based on risk, including mechanical SCDs
Can transfuse if indicated for Hb <7, plt < 10
INR WNL
No prior h/o diabetes or thyroid disease
Monitor accuchecks PRN/SS coverage if needed
Diagnostic Data
Chest X-Ray: 04/19/24- No acute cardiopulmonary process.
CT Scan: AP 05/16/24- 1. No significant acute abnormality identified in the abdomen or pelvis, as described above.
2. Left lower extremity DVT is seen to begin at the level of the left common femoral vein. Patent left external iliac vein and more proximal veins.
LE US 05/16/24- Findings: Occlusive thrombus throughout the left common femoral, femoral, and popliteal veins, as well as in the left posterior tibial vein. Nonvisualization of the left peroneal vein. There is also occlusive thrombus within the left
greater saphenous vein at the saphenofemoral junction extending through the proximal to mid thigh.
Echo: 07/18/23- Normal biventricular size and systolic function without regional wall motion abnormality. Estimated LVEF 55-60%. No significant valve disease. Compared to 03/19/22: LVEF has improved from 35-40% to 55-60%, and apical wall motion
abnormalities have resolved.
PFT's:
Reports and relevant images were personally reviewed.
-----
Critical care time 35 mins -- this includes review of history, physical exam, medications, hemodynamic/ventilator parameters, laboratory data, imaging and discussion with house staff, pharmacy, respiratory therapy, solar sales representative and assessor, and nursing.
Subjective Dataa
Subjective Data
Date of Service:
Date of Service: May 18, 2024
Chief Complaint: Care Management Associate Follow Up
Subjective:
overnight returned from OR on lytics
no new complaints
plan to return to OR today
Objective Data
Data Reviewed
Vital Signs / I&O / Oxygen:
Vital Signs
Temp Pulse Resp BP Pulse Ox
98.4 F 67 18 123/73 95
05/18/24 03:11 05/18/24 06:00 05/18/24 06:00 05/18/24 06:00 05/18/24 06:00
Intake and Output
05/17/24 05/18/24 05/19/24
06:59 06:59 06:59
Intake Total 64 / 64 3400 / 3400
Output Total 725 / 725
Balance 64 / 64 2675 / 2675
SaO2 95
Physical Exam
General: Comfortable and Other (NAD)
HEENT: Normocephalic, Anicteric and Moist Mucous Membranes
Cardiovascular: S1-S2 and Regular Rhythm
Respiratory: Clear and Non-Labored Respirations
GI: Soft, Non Distended and Non Tender
Neurology: Awake, Alert, Oriented, AO x 3 and No Motor Deficits
Skin: Warm, Dry and Good Color
Labs/Micro/Reports
Lab Data
05/18/24 02:06
Laboratory Results
05/17/24 05/17/24 05/17/24
12:40 19:30 20:08
PT 14.6
INR 1.14
APTT 78.7 H Cancelled 35.6 H
05/18/24
02:06
PT 14.8 H
INR 1.16
APTT 34.4
--- NOTE | 2024-05-18 07:24 | W.PN.HOSP.TC ---
Addendum entered and electronically signed by Shaheed Wallace DO 05/18/24 15:35:
Documentation complete
Original Note:
Today's Communication/Plan
-
Continue anticoagulation
Monitor CBC
N.p.o. for OR
Assessment / Plan
Assessment / Plan
Gen-AAOx3, NAD
HEENT-NC, AT, anicteric, clear oral mm
Neck-supple
CV-reg, no M, +S1/S2
Lungs-clear B/L
Abd-soft, NT, ND
Ext-diffuse left lower extremity edema
Musculoskeletal-no cyanosis, clubbing
Skin-warm and dry, no appreciable scrotal swelling
Neuro-grossly non-focal
Psych-calm, cooperative
Acute extensive left lower extremity DVT -unprovoked apparently. Ultrasound confirms occlusive thrombus throughout the left common femoral, femoral, and popliteal veins, as well as left posterior tibial vein. Currently on IV heparin infusion.
Anticipate long-term anticoagulation on discharge.
Underwent left lower extremity ascending venogram and central venogram with initiation of catheter directed thrombolysis 05/17. Back to the OR today per vascular surgery.
Hyponatremia -132 today. Suspect hyponatremia related to alcohol abuse. Differential also includes volume depletion. Normal saline IV fluid ordered.
Hypomagnesemia -resolved.
Bilateral hydroceles -related to extensive DVT. I see no indication for urology consult. Discussed with Dr. Olivier.
Severe alcohol use disorder -Daily drinker. High risk for alcohol withdrawal syndrome. Continue alcohol withdrawal protocol. Counseled on strict need for abstinence given need for anticoagulation on discharge. High risk for bleeding. Patient
seems to understand and wants to quit. Appreciate psychiatry input.
Has not required any doses of lorazepam so far.
Hx pancytopenia - Differential diagnosis includes alcohol induced bone marrow suppression versus underlying cirrhosis versus other causes. Strict alcohol abstinence recommended and will need ongoing follow-up after discharge. Discussed with
patient. Platelet count 64,000 this morning, will monitor.
Hx Gout
History of nonischemic cardiomyopathy -recovered EF.
Marijuana use disorder
Full code
Anticipated Discharge: > 48 hours
Subjective/Interval History
-
Date of Service: May 18, 2024
Patient seen and examined. No new complaints.
Objective Data
-
Labs:
Laboratory Results
05/17/24 05/17/24 05/18/24
19:30 20:08 02:06
WBC 4.0 L
Hgb 10.5 L 10.1 L
Hct 28.4 L 27.3 L
Plt Count 72 L 64 L
PT 14.6 14.8 H
INR 1.14 1.16
APTT Cancelled 35.6 H 34.4
Sodium 132 L
Potassium 4.0
Chloride 103
Carbon Dioxide 26
BUN 12
Creatinine 0.7
Glucose 82
Calcium 7.8 L
Total Bilirubin 2.1 H
AST 79 H
ALT 30
Alkaline Phosphatase 76
05/18/24 05/18/24 05/18/24
08:00 14:00 20:00
WBC
Hgb Pending Pending Pending
Hct Pending Pending Pending
Plt Count Pending Pending Pending
PT Pending Pending Pending
INR Pending Pending Pending
APTT Pending Pending Pending
Sodium
Potassium
Chloride
Carbon Dioxide
BUN
Creatinine
Glucose
Calcium
Total Bilirubin
AST
ALT
Alkaline Phosphatase
Vital Signs:
Vital Signs
Temp Pulse Resp BP Pulse Ox
98.4 F 67 18 123/73 95
05/18/24 03:11 05/18/24 06:00 05/18/24 06:00 05/18/24 06:00 05/18/24 06:00
I&O
05/17/24 05/18/24 05/19/24
06:59 06:59 06:59
Intake Total 3400 / 3400
Output Total 725 / 725
Balance 3145 / 2675
Review of Systems
-
History Source: Patient
All other systems: Reviewed and negative
--- NOTE | 2024-05-18 07:37 | W.PN.VS ---
Addendum entered and electronically signed by Marc Tam III, MD 05/18/24 15:29:
This patient was seen and examined with ASHLEY Max. I agree with the history and physical exam as well as the assessment and plan. I have the following additions:
Return to the OR today for venogram and lysis check.
Signed:
Marc Tam III, MD
[facility] Surgery
[phone] (cell)
Original Note:
Today's Communication / Plan
-
See below.
Assessment/Plan
-
Assessment: 58 year old male POD#1 Left lower extremity ascending venogram and central venogram and initiation of catheter directed thrombolysis
Plan:
OR today for LLE venogram, lysis catheter check, possible removal, possible stent/INTERNAL CONTROL ANALYST
NPO
Subjective Data
-
Date of Service: May 18, 2024
Patient seen and examined, offers no complaints other than eager for PO intake. Denies left lower extremity pain, headache, ABD pain, nausea, vomiting, fever, and chills.
Objective Data
-
Vital Signs
Temp Pulse Resp BP Pulse Ox
98.4 F 67 18 123/73 95
05/18/24 03:11 05/18/24 06:00 05/18/24 06:00 05/18/24 06:00 05/18/24 06:00
Intake and Output
05/17/24 05/18/24 05/19/24
06:59 06:59 06:59
Intake Total 3400 / 3515 115 / 115
Output Total 725 / 725
Balance 2675 / 2790 115 / 115
Intake:
Oral fluids 600 / 600
IV fluids (Total) 2550 / 2665 115 / 115
HEPARIN 130 / 130
NS alteplase carrier 552 / 598 46 / 46
Nss 1,000 ml @ 100 mls/hr IV . 1160 / 1160
Q10H VELIA Rx#:[id number]
Nss 1,000 ml @ 60 mls/hr IV . 600 / 660 60 / 60
[id number] VELIA Rx#:[id number]
alteplase 48 / 52 4 / 4
sheath heparin 60 / 65 5 / 5
IV piggybacks 250 / 250
Output:
Urine, Voided 725 / 725
Other:
Number of approximated LARGE 1
amounts of urine
Lab Results
05/18/24 02:06
Calcium 7.8 mg/dl (8.4-10.2) L 05/18/24 02:06
Phosphorus 3.5 mg/dl (2.5-4.5) 05/17/24 03:49
Magnesium 1.7 mg/dl (1.6-2.3) 05/18/24 02:06
Total Bilirubin 2.1 mg/dl (0.2-1.3) H 05/18/24 02:06
Direct Bilirubin 0.9 mg/dl (0.0-0.4) H 05/18/24 02:06
AST 79 U/L (17-59) H 05/18/24 02:06
ALT 30 U/L (0-50) 05/18/24 02:06
Alkaline Phosphatase 76 U/L (38-126) 05/18/24 02:06
Total Protein 5.1 g/dl (6.3-8.2) L D 05/18/24 02:06
Albumin 2.7 g/dl (3.5-5.0) L D 05/18/24 02:06
Physical Exam
-
AAOx3, NAD
No tachycardia
No dyspnea
ABD non-tender and non-distended
Left lower extremity with +1 edema, all compartments soft, no evidence of hematoma, +2 DP pulse
[2024-05-18] MEDS: FOLVITE 1 MG PO (08:07)
[2024-05-18] MEDS: THIAMINE INJECTION 200 MG IV ×2 (08:07→20:27)
[2024-05-18 08:28] LABS: Hematocrit 28.1 % (39.0-52.0); Hemoglobin 9.9 g/dL (13.0-18.0); Platelet Count 66 10^3/uL (130-400)
[2024-05-18 08:34] LABS: INR 1.21; PT 15.1 Sec (11.4-14.6)
[2024-05-18 08:35] LABS: APTT 35.8 Sec (23.4-35.0)
[2024-05-18 08:56] LABS: Fibrinogen 201 MG/DL (199-459)
--- NOTE | 2024-05-18 09:25 | PTCARENOTE ---
recd 0715 handoff at bedside, neuro/neurovascular assessments unchanged. alteplase/NS carrier via popliteal vein, dressings occlusive, leg elevated, took pill with sip water without difficulty, seen by Dr. Tam and vascular team. skin warm and
dry, tolerating room air, comfortable. discussed plan of care and pending patient registration clerk returning to OR. denies discomfort or any urge to urinate.
--- NOTE | 2024-05-18 14:25 | PTCARENOTE ---
taken to vascular OR by vascular lab staff, alteplase and NS infusing, heparin via sheath.
--- NOTE | 2024-05-18 15:00 | W.PN.UPDATE ---
Update Note
Progress Note Update
attempted to see patient but he had just gone down for procedure. psych will check in w him tomorrow.
--- NOTE | 2024-05-18 15:21 | PN.CDI ---
CDI
- -
CDI:
Physician Documentation Request
Admit Date: 05/16/24 23:13
Dear Doctor Rodrigo,
Patient admitted with acute extensive left lower extremity DVT.
05/16 PN, 'Hx pancytopenia - Differential diagnosis includes alcohol induced bone marrow suppression versus underlying cirrhosis versus other causes. Strict alcohol abstinence recommended and will need ongoing follow-up after discharge. Discussed
with patient. Platelet count 64,000 this morning, will monitor.
05/18 WBC 4.0, RBC 2.31 and platelet count 64.
Please provide in your note the following:
Pancytopenia is still a valid diagnosis for this patient
Pancytopenia is not a valid diagnosis, history only
Other
Use of terms such as suspected, likely, concern for, or probable (associated with a specific diagnosis that is being evaluated, monitored, or treated as if it exists) are acceptable and can be coded in the inpatient setting, when documented at the
time of discharge.
Thank you,
Barbara GHOSH,RN,CCDS
CDI Specialist
Available via [facility] text
Please use your independent medical judgment in providing your response.
--- NOTE | 2024-05-18 15:26 | CM ---
CM following re: discharge planning.
Discussed in Rounds, reviewed pt's chart, met with pt. Per Rounds meeting, pt is POD#1 Left lower extremity ascending venogram and central venogram and initiation of catheter directed thrombolysis. OR today for LLE venogram, lysis catheter check,
possible removal, possible stent/RCIS. NPO
CM provided pt with [facility] application to complete to apply for services upon the discharge. pt expressed his understanding and the importance to complete the application in order to have support from [facility].
[facility] following and per [facility] Balaji pt is not interested in inpatient D&A rehab and expressed his interest in outpatient D&A treatment programs.
D/C plan: home with [facility] to follow and follow up with [facility] for necessary care and support.
CM will follow with discharge plan updates as hospitalization progresses.
[2024-05-18] MEDS: NSS 1000 IV (16:30)
[2024-05-18 17:21] LABS: Hematocrit 29.2 % (39.0-52.0); Hemoglobin 10.7 g/dL (13.0-18.0); Mean Corp Hgb Conc. 36.6 g/dL (33.0-37.0); Mean Corpuscular Hgb 43.1 pg (27.0-31.0); Mean Corpuscular Volume 117.7 fL (80.0-94.0); Mean Platelet Volume 9.2 fL (7.4-10.4); Platelet Count 70 10^3/uL (130-400); Red Blood Cell Count 2.48 10^6/uL (4.70-6.10); Red Cell Dist. Width 14.4 % (11.5-14.5); White Blood Cell Count 5.6 10^3/uL (4.8-10.8)
--- NOTE | 2024-05-18 17:44 | PTCARENOTE ---
arrived back from vascular OR at 1645, vascular checks noted. arrived with dressing, bloody dge L toes from OR, turning, toenails snagged. dressing changed, adaptic, gauze, tape. Ice pack given. L posterior knee popliteal area dressing dry.
labs drawn, heparin restarted per orders. eating dinner. aware of restrictions leg straight x 6 hours. presently eating dinner.
[2024-05-18 17:47] LABS: APTT > 200 Sec (23.4-35.0)
--- NOTE | 2024-05-18 17:47 | OR.RPT ---
Operative Report
Operative Report
Date of Operation: 05/18/2024
Pre Op Diagnosis: Left lower extremity DVT status post initiation of thrombolysis
Post Op Diagnosis: Left lower extremity DVT status post initiation of thrombolysis
Procedure:
1.) Left lower extremity venogram (lysis check)
2.) Iliocaval venogram
3.) Mechanical aspiration thrombectomy, left popliteal vein, femoral vein and common femoral vein using the Penumbra Flash system
4.) Balloon venoplasty of left femoral vein stenosis (8 mm x 100 mm angioplasty balloon & 10 mm x 80 mm angioplasty balloon)
Surgeon: Marc Tam III, MD
Anesthesia: Sedation/local
Complications: None
Estimated Blood Loss: 150 cc
History and Indications for Procedure: 58-year-old male status post initiation of venous thrombolysis for lower extremity DVT. I brought him back to the operating room for a lysis check and additional endovascular intervention.
Procedure in Detail: Kyler Sandoval was brought to the operating room and placed prone. After adequate induction of anesthesia the left popliteal fossa with the existing sheath and lysis catheter were prepped and draped in the usual sterile fashion.
I performed a venogram through the existing lysis catheter which showed improvement in the appearance of the femoral vein DVT but significant residual thrombus was identified. The common femoral vein appeared to be patent. The left iliac venous
system was patent. Additional venograms were performed through the sheath in the popliteal vein which demonstrated again a patent femoral vein with residual thrombus identified. 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 The
popliteal vein was patent with residual thrombus identified.
Systemic heparin was administered. I placed a Storq wire through the lysis catheter and advanced this under fluoroscopy into the IVC. The lysis catheter was removed. The existing sheath was removed and I placed a 16 Welsh dry seal sheath. The
Penumbra Flash system was prepped on the back table. The Penumbra catheter was introduced into the 16 Fr sheath and advanced under fluoroscopic guidance. Aspiration thrombectomy was performed on the popliteal and femoral vein. I could not pass the
Penumbra catheter through the femoral vein in the proximal thigh. The thrombus that was removed appeared to be chronic in nature. I performed balloon venoplasty on the proximal femoral vein with an 8 mm x 100 mm angioplasty balloon. There were areas
of clear stenosis in the femoral vein at this area demonstrated by waisting on the balloon. These areas gave way with inflation of the balloon to nominal pressure and profiled nicely. I then deflated the balloon and removed it over the wire.
Following this I was able to advance the Penumbra catheter through the remainder of the femoral vein and common femoral vein. I then slowly pulled the Penumbra catheter back through the common femoral vein, femoral vein and popliteal vein with the
catheter in aspiration mode. The catheter was then removed from the body.
Subsequent venograms through the 16Fr sheath demonstrated a significantly improved result compared to pre-treatment. There was flow through the popliteal vein, femoral vein and common femoral vein. The iliac veins were patent. Some residual thrombus
and stenosis was identified in the segment of the proximal femoral vein that was ballooned prior. I treated this area with a 10 mm x 80 mm angioplasty balloon. Subsequent venogram demonstrated a patent femoral vein with flow through this area.
Satisfied with this result I then concluded the procedure. A 3-0 Prolene suture was placed around the sheath puncture site in the left popliteal fossa and secured as the sheath and wire were removed. Additional pressure was held over the puncture
site for 10 minutes. Hemostasis was achieved. A sterile dressing was applied.
The patient tolerated the procedure well was taken to the recovery room in good condition.
Signed:
Marc Tam III, MD
[facility] V[facility] Surgery
[phone] (cell)
[2024-05-18] MEDS: NSS INF CATH (17:56)
[2024-05-18] MEDS: NSS IV (17:56)
--- NOTE | 2024-05-18 19:47 | PTCARENOTE ---
Assumed care of pt. approx 1900. Resting in bed.
AAOx4, neuro exam unremarkable, all WNL.
Sinus w/o ectopy, normotensive, normothermic. Popliteal pulses bounding, dressing slight spotting.
Toe dressing intact, pt. offers no complaints of pain.
[2024-05-18 20:38] LABS: Hematocrit 28.7 % (39.0-52.0); Hemoglobin 10.5 g/dL (13.0-18.0); Platelet Count 100 10^3/uL (130-400)
[2024-05-18 20:49] LABS: Fibrinogen 201 MG/DL (199-459)
[2024-05-18 20:50] LABS: APTT 61.9 Sec (23.4-35.0)
[2024-05-18 21:27] LABS: INR 1.24; PT 15.4 Sec (11.4-14.6)
[2024-05-19] VITALS (14 sets, daily range): BP systolic 107–137; BP diastolic 59–72; PULSE 62; O2SAT 98; BMI 26.0
--- NOTE | 2024-05-19 00:15 | PTCARENOTE ---
Remains sinus w/o ectopy. All pulses palpable, normotensive, normothermic. GCS 15.
Dressing on L foot changed.
PRN throat lozenge ordered for sore throat.
right upper arm 20 inserted via USG.
remains on heparin gtt, NSS d/c.
[2024-05-19 00:17] LABS: Hematocrit 27.1 % (39.0-52.0); Hemoglobin 9.9 g/dL (13.0-18.0); Platelet Count 91 10^3/uL (130-400)
[2024-05-19 00:29] LABS: INR 1.17; PT 14.7 Sec (11.4-14.6)
[2024-05-19 00:30] LABS: Fibrinogen 209 MG/DL (199-459)
[2024-05-19 00:31] LABS: APTT 60.7 Sec (23.4-35.0)
[2024-05-19 02:23] LABS: APTT 74.1 Sec (23.4-35.0)
--- NOTE | 2024-05-19 03:57 | PTCARENOTE ---
PTT therapeutic x1, next PTT due 0800.
pt. remains unchanged from prior assessment.
[2024-05-19] MEDS: HEPARIN 25000 UNITS/250 ML IV (05:04)
[2024-05-19 05:08] LABS: Hematocrit 25.6 % (39.0-52.0); Mean Corp Hgb Conc. 35.2 g/dL (33.0-37.0); Mean Corpuscular Hgb 42.5 pg (27.0-31.0); Mean Corpuscular Volume 120.8 fL (80.0-94.0); Mean Platelet Volume 9.8 fL (7.4-10.4); Platelet Count 83 10^3/uL (130-400); Red Blood Cell Count 2.12 10^6/uL (4.70-6.10); Red Cell Dist. Width 14.1 % (11.5-14.5); White Blood Cell Count 5.6 10^3/uL (4.8-10.8)
[2024-05-19 05:20] LABS: Fibrinogen 197 MG/DL (199-459)
[2024-05-19 05:21] LABS: APTT 78.4 Sec (23.4-35.0)
[2024-05-19 05:40] LABS: ALT (SGPT) 27 U/L (0-50); AST (SGOT) 73 U/L (17-59); Albumin 2.3 g/dl (3.5-5.0); Alkaline Phosphatase 71 U/L (38-126); Blood Urea Nitrogen 8 mg/dl (9-20); Calcium 7.7 mg/dl (8.4-10.2); Carbon Dioxide 24 mmol/L (22-30); Chloride 105 mmol/L (98-107); Estimated Creatinine Clearance > 125 ml/min; Glucose 90 mg/dl (70-99); Magnesium 1.5 mg/dl (1.6-2.3); Potassium 3.9 mmol/L (3.5-5.1); Sodium 133 mmol/L (135-145); Total Bilirubin 1.1 mg/dl (0.2-1.3); Total Protein 4.5 g/dl (6.3-8.2); eGFR > 60.00
--- NOTE | 2024-05-19 07:13 | W.PN.INTV ---
Today's Communication / Plan
Recommendations
Doing well post procedure, no events
Remains stable, denies pain
Can likely ambulate, PT/OT eval
Transfer to floors if ok with team, we will sign off upon transfer
Assessment
-
Patient is a 58-year-old male with previous history of any cardiomyopathy preserved EF presenting with increased swelling of his left lower extremity and scrotum. Ultrasound performed in the emergency room demonstrating extensive left-sided DVT.
Placed on IV heparin gtt and admitted to ICU for thrombectomy 05/17/24.
Acute LLE DVT s/p Initiation of catheter directed thrombolysis 05/17/24
s/p Left lower extremity venogram; Mechanical aspiration thrombectomy, left popliteal vein, femoral vein and common femoral vein; Balloon venoplasty of left femoral vein stenosis 05/18/24
Scrotal swelling/small right and moderate left hydroceles
Thrombocytopenia
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
Alcohol Use Disorder-Daily use (6-8 ounces of vodka nightly)
Non-Ischemic Cardiomyopathy
Gout
Cholecystectomy
Umbilical Herniorrhaphy
Plan
No current signs of metabolic encephalopathy or MS changes/following commands
Denies pain at this time.
ETOH use disorder noted, MSAS added, no tremors noted
Pain/sedation: MSAS PRN, can likely stop
RASS goals: 0
Hemodynamically stable, not requiring pressors.
Cardiac history reviewed--NICM with recovered EF
Prior ECHO reviewed indicating normal function
Monitor on telemetry
Oxygen needs: stable on RA
Prior history of lung disease: none
Supplemental O2 as indicated to maintain sats > 89%
CXR/CT reviewed indicating NAD
Diet advancement, tolerating
Hat Steamer recommendations
Aspiration precautions, HOB > 30 degrees
Speech therapy eval can be considered if at elevated risk
GI prophylaxis if indicated for mechanical ventilation >48 hours, prior history of GERD, stress ulcer formation in the critically ill
Creat at baseline, no history of renal disease
Void trials
Follow urine output, critical I/Os
Replete electrolytes as needed
No signs/symptoms suspicious for infectious etiology at this time
Observe off antibiotics for now
Follow fever trend, WBC count
LLE DVT, no history of VTE in past
s/p Initiation of catheter directed thrombolysis 05/17/24
s/p LLE venogram, lysis catheter check, suction thrombectomy/angioplasty 05/18/24
CBC stable, plt count noted--likely from heparin, can hold if <50
Vasc following
DVT prophylaxis as assessed based on risk, including mechanical SCDs
Can transfuse if indicated for Hb <7, plt < 10
INR WNL
No prior h/o diabetes or thyroid disease
Monitor accuchecks PRN/SS coverage if needed
Diagnostic Data
Chest X-Ray: 04/19/24- No acute cardiopulmonary process.
CT Scan: AP 05/16/24- 1. No significant acute abnormality identified in the abdomen or pelvis, as described above.
2. Left lower extremity DVT is seen to begin at the level of the left common femoral vein. Patent left external iliac vein and more proximal veins.
LE US 05/16/24- Findings: Occlusive thrombus throughout the left common femoral, femoral, and popliteal veins, as well as in the left posterior tibial vein. Nonvisualization of the left peroneal vein. There is also occlusive thrombus within the left
greater saphenous vein at the saphenofemoral junction extending through the proximal to mid thigh.
Echo: 07/18/23- Normal biventricular size and systolic function without regional wall motion abnormality. Estimated LVEF 55-60%. No significant valve disease. Compared to 03/19/22: LVEF has improved from 35-40% to 55-60%, and apical wall motion
abnormalities have resolved.
PFT's:
Reports and relevant images were personally reviewed.
-----
Critical care time 35 mins -- this includes review of history, physical exam, medications, hemodynamic/ventilator parameters, laboratory data, imaging and discussion with house staff, pharmacy, respiratory therapy, cdl instructor, and nursing.
Subjective Dataa
Subjective Data
Date of Service:
Date of Service: May 19, 2024
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
Subjective:
no new events, tolerated procedure well
no pain, stable on room air
Objective Data
Data Reviewed
Vital Signs / I&O / Oxygen:
Vital Signs
Temp Pulse Resp BP Pulse Ox
98 F 63 15 121/65 96
05/19/24 04:00 05/19/24 06:00 05/19/24 06:00 05/19/24 06:00 05/19/24 06:00
Intake and Output
05/18/24 05/19/24 05/20/24
06:59 06:59 06:59
Intake Total 3400 / 3515 2205 / 2205
Output Total 725 / 725 1725 / 1725
Balance 2675 / 2790 480 / 480
SaO2 96
Physical Exam
General: Comfortable and Other (NAD)
HEENT: Normocephalic, Anicteric and Moist Mucous Membranes
Cardiovascular: S1-S2 and Regular Rhythm
Respiratory: Clear and Non-Labored Respirations
GI: Soft, Non Distended and Non Tender
Neurology: Awake, Alert, Oriented, AO x 3 and No Motor Deficits
Skin: Warm, Dry and Good Color
Labs/Micro/Reports
Lab Data
05/19/24 04:26
Laboratory Results
05/18/24 05/18/24 05/18/24
08:04 14:00 17:14
PT 15.1 H Cancelled
INR 1.21 Cancelled
APTT 35.8 H Cancelled > 200 H*
05/18/24 05/18/24 05/19/24
20:26 23:00 00:06
PT 15.4 H 14.7 H
INR 1.24 1.17
APTT 61.9 H Cancelled 60.7 H
05/19/24 05/19/24
01:58 04:26
PT 15.0 H
INR 1.20
APTT 74.1 H 78.4 H
--- NOTE | 2024-05-19 07:36 | W.PN.HOSP.TC ---
Addendum entered and electronically signed by Shaheed Wallace DO 05/19/24 13:02:
I went over detailed discharge instructions with patient's daughter Sunita over the phone. Apparently she is located in [place]. All questions answered. I stressed the importance of close outpatient follow-up this coming week with the [facility] clinic here at the hospital.
Addendum entered and electronically signed by Shaheed Wallace DO 05/19/24 12:46:
I spoke with vascular surgery, okay to discharge today.
Spoke with case management. Eliquis is too expensive for the patient, he has no health insurance.
He is willing to do Lovenox injections twice daily until INR therapeutic on warfarin. Nursing to provide teaching on Lovenox subcutaneous injections prior to discharge.
Prescription sent to [facility] pharmacy in [place] for Lovenox and warfarin.
Instructed patient that he needs INR blood test on May 22 to monitor warfarin effect.
Follow-up with the [facility].
35 minutes spent in discharge process.
Original Note:
Today's Communication/Plan
-
Await vascular surgery input
Assessment / Plan
Assessment / Plan
Gen-AAOx3, NAD
HEENT-NC, AT, anicteric, clear oral mm
Neck-supple
CV-reg, no M, +S1/S2
Lungs-clear B/L
Abd-soft, NT, ND
Ext-left lower extremity edema improved.
Musculoskeletal-no cyanosis, clubbing
Skin-warm and dry, no appreciable scrotal swelling
Neuro-grossly non-focal
Psych-calm, cooperative
Acute extensive left lower extremity DVT -unprovoked apparently. Ultrasound confirms occlusive thrombus throughout the left common femoral, femoral, and popliteal veins, as well as left posterior tibial vein. Currently on IV heparin infusion.
Anticipate long-term anticoagulation on discharge.
Underwent left lower extremity ascending venogram and central venogram with initiation of catheter directed thrombolysis 05/17. Back to the OR 05/18 for venogram and lysis check per vascular surgery.
If okay with vascular surgery will convert to Eliquis today.
Hyponatremia -133 today. Suspect hyponatremia related to alcohol abuse. Differential also includes volume depletion. Normal saline IV fluid ordered.
Hypomagnesemia -replete intravenously.
Bilateral hydroceles -related to extensive DVT.
Left first toe nail avulsion -nails were long to begin with. Continue local dressing
Severe alcohol use disorder -Daily drinker. High risk for alcohol withdrawal syndrome. Continue alcohol withdrawal protocol. Counseled on strict need for abstinence given need for anticoagulation on discharge. High risk for bleeding. Patient
seems to understand and wants to quit but does not have a concrete plan. Appreciate psychiatry input.
Has not required any doses of lorazepam so far.
Hx pancytopenia - Differential diagnosis includes alcohol induced bone marrow suppression versus underlying cirrhosis versus other causes. Strict alcohol abstinence recommended and will need ongoing follow-up after discharge. Discussed with
patient. Platelet count 83,000 this morning, will monitor. White blood cell count recovered. Hemoglobin 9.0.
Hx Gout
History of nonischemic cardiomyopathy -recovered EF.
Marijuana use disorder
Full code
PT consult
Anticipated Discharge: Within 24 hours
Subjective/Interval History
-
Date of Service: May 19, 2024
Patient seen and examined. No complaints.
Objective Data
-
Labs:
Laboratory Results
05/18/24 05/19/24 05/19/24
20:26 00:06 01:58
WBC
Hgb 10.5 L 9.9 L
Hct 28.7 L 27.1 L
Plt Count 100 L D 91 L
PT 15.4 H 14.7 H
INR 1.24 1.17
APTT 61.9 H 60.7 H 74.1 H
Sodium
Potassium
Chloride
Carbon Dioxide
BUN
Creatinine
Glucose
Calcium
Total Bilirubin
AST
ALT
Alkaline Phosphatase
05/19/24 05/19/24 05/19/24
04:26 08:00 12:00
WBC 5.6
Hgb 9.0 L Pending
Hct 25.6 L Pending
Plt Count 83 L Pending
PT 15.0 H Pending
INR 1.20 Pending
APTT 78.4 H Pending Pending
Sodium 133 L
Potassium 3.9
Chloride 105
Carbon Dioxide 24
BUN 8 L
Creatinine 0.6 L
Glucose 90
Calcium 7.7 L
Total Bilirubin 1.1 D
AST 73 H
ALT 27
Alkaline Phosphatase 71
Vital Signs:
Vital Signs
Temp Pulse Resp BP Pulse Ox
98.1 F 63 15 121/65 96
05/19/24 07:20 05/19/24 06:00 05/19/24 06:00 05/19/24 06:00 05/19/24 06:00
I&O
05/18/24 05/19/24 05/20/24
06:59 06:59 06:59
Intake Total 3400 / 3515 2205 / 2205
Output Total 725 / 725 1725 / 1725
Balance 2675 / 2790 480 / 480
Review of Systems
-
History Source: Patient
All other systems: Reviewed and negative
[2024-05-19] MEDS: MAGNESIUM SULFATE 100 IV (07:40)
[2024-05-19] MEDS: FOLVITE 1 MG PO (07:44)
[2024-05-19] MEDS: THIAMINE INJECTION 200 MG IV (07:47)
--- NOTE | 2024-05-19 07:50 | W.PN.VS ---
Today's Communication / Plan
-
as above
Assessment/Plan
-
Assessment: 58 year old male POD#1 Left lower extremity ascending venogram and central venogram and initiation of catheter directed thrombolysis
Plan:
Ok to transition to Eliquis today
OOB
Ok to down grade or discharge from vascular surgery standpoint
Subjective Data
-
Date of Service: May 19, 2024
No acute events. States leg overall feels better.
Objective Data
-
Vital Signs
Temp Pulse Resp BP Pulse Ox
98.1 F 63 15 121/65 96
05/19/24 07:20 05/19/24 06:00 05/19/24 06:00 05/19/24 06:00 05/19/24 06:00
Intake and Output
05/18/24 05/19/24 05/20/24
06:59 06:59 06:59
Intake Total 3400 / 3515 2205 / 2205
Output Total 725 / 725 1725 / 1725
Balance 2675 / 2790 480 / 480
Intake:
Oral fluids 600 / 600 670 / 670
IV fluids (Total) 2550 / 2665 1535 / 1535
HEPARIN 130 / 130 135 / 135
NS alteplase carrier 552 / 598 368 / 368
Nss 1,000 ml @ 100 mls/hr IV . 1160 / 1160
Q10H VELIA Rx#:[id number]
Nss 1,000 ml @ 60 mls/hr IV . 600 / 660 480 / 480
[id number] VELIA Rx#:[id number]
Nss 1,000 ml @ 80 mls/hr IV . 480 / 480
Q00R50R VELIA Rx#:[id number]
alteplase 48 / 52 32 / 32
sheath heparin 60 / 65 40 / 40
IV piggybacks 250 / 250
Output:
Urine, Voided 725 / 725 1725 / 1725
Other:
Number of approximated LARGE 1 1
amounts of urine
Lab Results
05/19/24 04:26
Calcium 7.7 mg/dl (8.4-10.2) L 05/19/24 04:26
Phosphorus 3.5 mg/dl (2.5-4.5) 05/17/24 03:49
Magnesium 1.5 mg/dl (1.6-2.3) L 05/19/24 04:26
Total Bilirubin 1.1 mg/dl (0.2-1.3) D 05/19/24 04:26
Direct Bilirubin 0.9 mg/dl (0.0-0.4) H 05/18/24 02:06
AST 73 U/L (17-59) H 05/19/24 04:26
ALT 27 U/L (0-50) 05/19/24 04:26
Alkaline Phosphatase 71 U/L (38-126) 05/19/24 04:26
Total Protein 4.5 g/dl (6.3-8.2) L 05/19/24 04:26
Albumin 2.3 g/dl (3.5-5.0) L 05/19/24 04:26
Physical Exam
-
Left leg soft, minimal residual swelling
Popliteal fossa site c/d/i, no hematomas
[2024-05-19] MEDS: ELIQUIS 10 MG PO (08:08)
[2024-05-19] MEDS: ANESTHETIC LOZENGE 1 LOZENGE PO ×3 (08:08→13:15)
--- NOTE | 2024-05-19 10:08 | PTCARENOTE ---
Pt received in bed @ 0700. AAOx3. MSAS 0. PRN Anesthetic lozenge provided for sore throat upon request. Neurovascular assessment unchanged. Sinus rhythm on satellite project site monitor. Palpable peripheral pulses. +2 LLE edema and +1 RLE. LLE skin warm, full
sensation, and movement. SaO2 99% on room air. Popliteal site C/D/I. Left toes wrapped and C/D/I. Received on Heparin gtt; discontinued and Eliquis 10mg PO administered. Magnesium 4 grams IV infusing.
[2024-05-19 12:44] LABS: Hemoglobin 9.7 g/dL (13.0-18.0); Platelet Count 84 10^3/uL (130-400)
--- NOTE | 2024-05-19 12:44 | W.DS.TRANS ---
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
-
Discharge Instructions:
Diet Regular
Activity As tolerated
Driving Restrictions As prior to admission
Bathing Restrictions None
Blood Work INR on Tuesday05/22/24
Instructions:
Stand-Alone Forms: DC Instr - Vascular OR
Changes to Home Medications: No
Discharge Medications:
DC Medications w/original date entered in [facility]
enoxaparin 80 mg/0.8 mL subcutaneous syringe (Lovenox) 80 mg (0.8 mL) SC Q12H #8 mL 05/19/24
folic acid 1 mg tablet 1 mg PO DAILY #30 tabs 05/19/24
thiamine HCl (vitamin B1) 100 mg tablet 100 mg PO BID #60 tabs 05/19/24
warfarin 5 mg tablet 5 mg PO DAILY #30 tabs 05/19/24
Home Medication Changes
Pending Results: No
--- NOTE | 2024-05-19 12:49 | W.PN.UPDATE ---
Update Note
Progress Note Update
Patient verbally realizes he needs to remain sober but does not seem very motivated towards treatment. He states he will consider rehab but is not sure. He is also not sure if he wants to be in OP care which I strongly encouraged him to do. He has
flat affect but denies depression, hopelessness or suicidal thoughts.
I strongly encouraged him to in the very least attend AA meetings and having as sponsor. OP psychotherapy could also help.
--- NOTE | 2024-05-19 13:14 | CM ---
Addendum entered by Zainab Walters RN 05/19/24 13:25:
CM sent via tube system [facility] for Lovenox for [facility]. Cm updated bedside RN.
Original Note:
CM was consulted for discharge planning. CM ran the cost of Eliquis zuniga her through [facility]. Patient is not agreeable to $538 cost. CM noted that patient's cost would be for Lovenox $135. Patient is agreeable to cost with plan for Coumadin
bridge. CM emphasized following up with [facility] for labs and continued medical management.
CM updated bedside RN and attending MD.
[2024-05-19 13:18] LABS: Fibrinogen 228 MG/DL (199-459)
--- NOTE | 2024-05-19 14:43 | PTCARENOTE ---
Discharge instructions reviewed with patient. Able to demonstrate understanding of Lovenox injection technique after education. Warfarin info sheet provided. IV site removed. Wheelchair escort provided for patient to daughter's car.
== END 2024-05-19 15:13 | disposition home or self-care (01) | DRG 271 ==
LOC: ICU 23:13
PROVIDERS: Clinical Nurse Specialist Family Health; Emergency Medicine; Nurse Practitioner; Physician Assistant Medical; Surgery Vascular Surgery; ADMITTING PHYSICIAN Hospitalist; ATTENDING PHYSICIAN Hospitalist; CONSULT PHYSICIAN Internal Medicine; CONSULT PHYSICIAN Psychiatry & Neurology Psychiatry; EMERGENCY PHYSICIAN Emergency Medicine; OTHER PHYSICIAN Surgery Vascular Surgery
PROC: 3E03317 Introduction of Other Thrombolytic into Peripheral Vein, Percutaneous Approach (ICD-10-PCS; 2024-05-17)
PROC: B51C1ZZ Fluoroscopy of Left Lower Extremity Veins using Low Osmolar Contrast (ICD-10-PCS; 2024-05-17)
PROC: 067N3ZZ Dilation of Left Femoral Vein, Percutaneous Approach (ICD-10-PCS; 2024-05-18)
PROC: 06CY3ZZ Extirpation of Matter from Lower Vein, Percutaneous Approach (ICD-10-PCS; 2024-05-18)
PROC: 06CN3ZZ Extirpation of Matter from Left Femoral Vein, Percutaneous Approach (ICD-10-PCS; 2024-05-18)
DX: I82.412 Acute embolism and thrombosis of left femoral vein (principal); D61.818 Other pancytopenia; E87.1 Hypo-osmolality and hyponatremia; I42.8 Other cardiomyopathies; I87.1 Compression of vein; I82.432 Acute embolism and thrombosis of left popliteal vein; I82.442 Acute embolism and thrombosis of left tibial vein; F10.20 Alcohol dependence, uncomplicated; I82.890 Acute embolism and thrombosis of other specified veins; M10.9 Gout, unspecified; I10 Essential (primary) hypertension; N43.3 Hydrocele, unspecified; F12.90 Cannabis use, unspecified, uncomplicated; E83.42 Hypomagnesemia; S91.202A Unspecified open wound of left great toe with damage to nail, initial encounter; X58.XXXA Exposure to other specified factors, initial encounter
CPT/HCPCS: 36012; 37212; 71045; 74177; 75820; 76870; 76937; 80048; 80053; 81003; 81015; 82248; 83690; 83735; 83880; 84100; 85014; 85018; 85025; 85027; 85049; 85384; 85610; 85730; 86803; 93005; 93971; 93976; 96374; 97162; 99285; C1769; J2997; Q9967

== ENCOUNTER 2024-05-31 13:57 | Emergency (ER) | payer OTHER, SELFPAY ==
[2024-05-31 14:08] VITALS: BP 145/80
--- NOTE | 2024-05-31 14:57 | ED.GENMED ---
History of Present Illness
General
Chief Complaint: Abnormal Lab Value
Source: patient
Exam Limitations: none
Time Seen by Provider: 05/31/24 14:45
Nursing documentation reviewed up to this point in time: agreed with
History of Present Illness
History of Present Illness:
Patient is a 58-year-old male with past medical history of alcohol abuse pancytopenia recently diagnosed with extensive DVT of the left lower extremity and had a mechanical aspiration thrombectomy by Dr. Tam presents back to the ER for blood work.
He reports he went for follow-up appointment by Dr. Tam's office and was sent to the ER to have his INR checked. He is on Coumadin 5 mg daily. He has not followed up since having this procedure. He does not have a family doctor or insurance.
He has no physical complaints. He denies any shortness of chest pain.
When he was discharged she was discharged on Lovenox and Coumadin and Lovenox was to be taken 10 days and took his last dose Tuesday.
Past History
Past History
ED Past Medical History: HTN and Other (Gout, malnutrition, alcohol use with B12/folate deficiency. cardiomyopathy, elevated LFt's, Bronchitis with rib fracture)
ED Past Surgical History: Cholecystectomy and Other (Hernia)
Patient has exhibited threatening behavior?: No
Social History
Tobacco: Non-smoker
Alcohol: Daily (Vodka 6 oz)
Drug: Marijuana
Personal:
Living: with roommate (Resides with a roommate)
Employment: Employed
Family History
Family History: Other (Noncontributory)
Review of Systems
Review of Systems
Allergies reviewed?: Yes
All Other Systems: ROS reviewed and negative except as documented in HPI and ROS
Constitutional: Reports no symptoms; Denies fever, fatigue or chills
Respiratory: Reports no symptoms; Denies trouble breathing
Cardiac: Reports no symptoms
ABD/GI: Reports no symptoms
Musculoskeletal: Reports no symptoms
Skin: Reports no symptoms
Neurological: Reports no symptoms
Psychiatric: Reports no symptoms
Phy Exam
General Physical Exam
General Presentation: no apparent distress
General Skin: warm and dry
General Habitus: normal
General Mental: alert
General Hydration: appears well hydrated
Cardiovascular Exam
Cardiovascular Exam: regular rate/rhythm, no murmur and normal peripheral pulses
Pulmonary Exam
Pulmonary Exam: lungs clear and no respiratory distress
Neurological Exam
Neurological Exam: alert and oriented x3
Musculoskeletal Exam
Musculoskeletal Exam: full ROM
Skin Exam
Skin Exam: normal color and warm/dry
Psychiatric Exam
Psychiatric Exam: normal mood/affect
Course
Orders/Labs/Results
Orders:
Orders
05/31/24 14:21
PT/INR [Prothrombin Time] Urgent
Abnormal Lab Results
05/31/24
14:21
PT 43.4 H Sec
(11.4-14.6)
05/31/24 14:10
05/31/24 14:10
Vital Signs
Initial and Last Documented VS:
Initial Vital Signs
Temp Pulse Resp BP Pulse Ox
98.3 F 78 16 145/80 100
05/31/24 14:08 05/31/24 14:08 05/31/24 14:08 05/31/24 14:08 05/31/24 14:08
Last Documented Vital Signs
Temp Pulse Resp BP Pulse Ox
98.3 F 78 16 145/80 100
05/31/24 14:08 05/31/24 14:08 05/31/24 14:08 05/31/24 14:08 05/31/24 14:08
Science Liaison consulted with Physician
Science Liaison consulted with physician?: Yes
Name of Physician Consulted: Ericka
MDM/Problems Addressed
MDM/Problems Addressed:
Patient is a 58-year-old male, previous daily alcohol use and recently admitted May 16 discharged May 19 for extensive left lower extremity DVT had mechanical aspiration thrombectomy by Dr. Tam. Patient was discharged on Coumadin as well as
Lovenox because he could not afford Eliquis or Xarelto. He was supposed to schedule appointment with ancillary in clinic however case management who is now involve reports he never completed paperwork and brought it to clinic.
Patient was seen today by vascular however because he had not had his INR checked was sent to the ER. Patient's INR is 4.48. He took his last dose of Lovenox Tuesday and is due for Coumadin tonight. He has no physical complaints he is in no acute
distress denies any shortness of breath. I did speak with vascular surgery who is aware that he is here but he does need medical management as per vascular surgery. I did speak with hematology, Dr. Cevallos who does recommend holding Coumadin
tonight and then restarting tomorrow. In order to get this patient follow-up I did speak with family practice residency clinic DR Kaylie De Luna who will be able to see pt tomorrow or Tuesday. She will call patient first thing in the morning.
Patient was educated to hold Coumadin tonight and restart tomorrow I did speak with patient regarding he should receive a phone call from family practice residency clinic and of the importance of continuing to follow-up for outpatient evaluation INR
checked.
In regards to patient's alcohol patient reports he has not drank since he was diagnosed with DVT and has been taking anticoagulation. He denies any withdrawal symptoms currently he has nontoxic and well with
*Pulse Oximetry
Patient hypoxic: no
*Critical Care Note
Total Time (30-74mins, 75-104mins- exclusive of procedures): Not Applicable
ED Attending Note
-
Portions of this chart may have been created with voice recognition software.� Occasional wrong word or��sound alike� substitutions may have occurred due to the inherent limitations of voice recognition software.
Discharge Plan
Departure
Patient Disposition: Home (Routine Discharge)
Date of Disposition: 05/31/24
Time of Disposition: 17:11
Patient with high blood pressure during this ER visit?: Yes
Condition: Fair
Covid-19: Not Applicable
Discharge Problem:
Encounter for medical assessment
Instructions: BLOOD PRESSURE
Prescriptions:
No Action
thiamine HCl (vitamin B1) 100 mg Tablet
100 mg PO BID Qty: 60 0RF
folic acid 1 mg Tablet
1 mg PO DAILY Qty: 30 0RF
enoxaparin [Lovenox] 80 mg/0.8 mL syringe
80 mg SC Q12H Qty: 8 0RF
warfarin 5 mg tablet
5 mg PO DAILY Qty: 30 0RF
Referrals:
[facility] [Outside]
NONE,* [Family Provider] -
Activity Restrictions/Additional Instructions:
Your INR level today was 4.48. Hold Coumadin dose today and start tomorrow normally. You will receive a call from the family practice clinic tomorrow for future appointments. They will be able to monitor you and continue to manage her Coumadin.
Return if any worsening of symptoms. If you do not hear from [facility] please give them a call to schedule an appointment
Interventions
Interventions:
*General Assessment Last Done: 05/31/24 14:08
*ED COVID-19 Vaccine History Last Done: 05/31/24 14:08
Discharge Date and Time
Print Language: CAPE [place]DE[place]
[2024-05-31 14:58] LABS: INR 4.48; PT 43.4 Sec (11.4-14.6)
[2024-05-31 17:50] VITALS: BP 137/73
== END 2024-05-31 17:51 | disposition home or self-care (01) ==
LOC: EMR 13:57
PROVIDERS: Student in an Organized Health Care Education/Training Program; EMERGENCY PHYSICIAN Emergency Medicine
DX: Z00.00 Encounter for general adult medical examination without abnormal findings (principal); I10 Essential (primary) hypertension
CPT/HCPCS: 99283; 85610

== ENCOUNTER 2024-06-05 16:55 | Emergency (ER) | payer SELFPAY ==
[2024-06-05 16:57] VITALS: BP 161/78
--- NOTE | 2024-06-05 17:42 | ED.GENMED ---
History of Present Illness
General
Chief Complaint: Abnormal Lab Value
Time Seen by Provider: 06/05/24 17:42
History of Present Illness
History of Present Illness:
HPI: The patient came here for INR check. He was diagnosed with a DVT a few weeks ago. He could not afford Eliquis or Xarelto and was placed on Coumadin. He had been taking 5 mg of Coumadin nightly. Last week his INR was above 4 and the Coumadin
was held. He followed up with the wellness center here but was then told to come here so he could get the results. He did resume Coumadin last night. He feels fine and his left lower extremity symptoms have resolved. He has no trouble breathing.
EXAM:
GENERAL: Well appearing in no distress
HEENT: Moist oral mucosa
CARDIOVASCULAR: No murmurs, normal heart rate, regular rhythm, No chest wall tenderness
PULMONARY: No respiratory distress, breath sounds are clear and equal
ABDOMEN: Soft with no peritoneal signs, no tenderness
NEUROLOGIC: Excellent strength all extremities, no coordination deficits
PSYCHIATRIC: Appropriate mental status, normal insight and judgement
EXTREMITIES: Nontender, no edema, moves all extremities equally
SKIN: No rash, no lesions
TIME OF INITIAL ENCOUNTER: 5:50 PM
NUMBER AND COMPLEXITY OF PROBLEMS ADDRESSED AT THE ENCOUNTER
� Chronic conditions affecting care: Has had DVT, cardiomyopathy
� Acute Exacerbation and/or Progression of Chronic Illness: This is an acute problem
� Differential Diagnosis includes: Subtherapeutic INR, supratherapeutic INR unlikely
AMOUNT AND/OR COMPLEXITY OF DATA TO BE REVIEWED AND ANALYZED
� I performed an independent evaluation of and my interpretation is:
EKG:
CT:
X-rays:
Laboratory Studies: INR is 1.22
Other:
� Review of other/old records: On 05/31/2024, the patient had an INR of 4.48
� Clinical information was obtained by an independent historian: None needed
� Prescriptions/Medications Considered but not given:
� Further testing considered but not performed:
RISK OF COMPLICATIONS AND/OR MORBIDITY OR MORTALITY OF PATIENT MANAGEMENT
� Social determinants of health affecting care: Lives at home
� Discussion with other providers:
� Escalation of care including admission/observation vs risk of discharge considered: INR was checked again today. INR is 1.22. He can safely resume the Coumadin�I suggest that he resume the same dose as before but follow-up
with the wellness center as they will be the ones managing his INR levels.
Past History
Past History
ED Past Medical History: HTN and Other (Gout, malnutrition, alcohol use with B12/folate deficiency. cardiomyopathy, elevated LFt's, Bronchitis with rib fracture)
ED Past Surgical History: Cholecystectomy and Other (Hernia)
Patient has exhibited threatening behavior?: No
Social History
Tobacco: Non-smoker
Alcohol: Daily (Vodka 6 oz)
Drug: Marijuana
Personal:
Living: with roommate (Resides with a roommate)
Employment: Employed
Family History
Family History: Other (Noncontributory)
Phy Exam
Physical Exam
Physical Exam:
See HPI
Course
Orders/Labs/Results
Orders:
Orders
06/05/24 17:24
PT/INR [Prothrombin Time] Urgent
Abnormal Lab Results
06/05/24
17:24
PT 15.3 H Sec
(11.4-14.6)
Vital Signs
Initial and Last Documented VS:
Initial Vital Signs
Temp Pulse Resp BP Pulse Ox
97.5 F 76 16 161/78 98
06/05/24 16:57 06/05/24 16:57 06/05/24 16:57 06/05/24 16:57 06/05/24 16:57
Last Documented Vital Signs
Temp Pulse Resp BP Pulse Ox
97.5 F 76 16 161/78 98
06/05/24 16:57 06/05/24 16:57 06/05/24 16:57 06/05/24 16:57 06/05/24 16:57
*Critical Care Note
Total Time (30-74mins, 75-104mins- exclusive of procedures): Not Applicable
ED Attending Note
-
Portions of this chart may have been created with voice recognition software.� Occasional wrong word or��sound alike� substitutions may have occurred due to the inherent limitations of voice recognition software.
Discharge Plan
Departure
Prescriptions:
No Action
thiamine HCl (vitamin B1) 100 mg Tablet
100 mg PO BID Qty: 60 0RF
folic acid 1 mg Tablet
1 mg PO DAILY Qty: 30 0RF
enoxaparin [Lovenox] 80 mg/0.8 mL syringe
80 mg SC Q12H Qty: 8 0RF
warfarin 5 mg tablet
5 mg PO DAILY Qty: 30 0RF
Interventions
Interventions:
*Risk Screen - Suicide Last Done: 06/05/24 16:57
*General Assessment Last Done: 06/05/24 16:57
*Neglect/Abuse Screening Last Done: 06/05/24 16:57
*ED COVID-19 Vaccine History Last Done: 06/05/24 16:57
Discharge Date and Time
Print Language: MALDIVIAN
[2024-06-05 17:51] LABS: INR 1.22; PT 15.3 Sec (11.4-14.6)
== END 2024-06-05 18:18 | disposition home or self-care (01) ==
LOC: EMR 16:55
PROVIDERS: EMERGENCY PHYSICIAN Emergency Medicine
DX: Z51.81 Encounter for therapeutic drug level monitoring (principal); I10 Essential (primary) hypertension; M10.9 Gout, unspecified; I42.9 Cardiomyopathy, unspecified; Z79.01 Long term (current) use of anticoagulants; Z90.49 Acquired absence of other specified parts of digestive tract; Z86.718 Personal history of other venous thrombosis and embolism; Z88.0 Allergy status to penicillin
CPT/HCPCS: 99283; 85610

== ENCOUNTER → 2024-06-08 11:15 | Outpatient (REF) | payer MEDICAID, SELFPAY ==
[2024-06-11 11:19] LABS: INR 2.69; PT 28.5 Sec (11.4-14.6)
== END ==
LOC: CLAB 11:15
DX: I82.412 Acute embolism and thrombosis of left femoral vein (principal)
CPT/HCPCS: 85610

== ENCOUNTER → 2024-06-22 12:57 | Outpatient (REF) | payer OTHER, SELFPAY | LOC: REG 12:57 | PROVIDERS: ATTENDING PHYSICIAN Physician Assistant | DX: I82.409 Acute embolism and thrombosis of unspecified deep veins of unspecified lower extremity (principal); Z79.01 Long term (current) use of anticoagulants | CPT/HCPCS: 93971; 93978 ==

== ENCOUNTER 2024-06-22 13:53 | Emergency (ER) | payer SELFPAY ==
[2024-06-22 13:57] VITALS: BP 143/94
--- NOTE | 2024-06-22 16:09 | ED.GENMED ---
History of Present Illness
General
Chief Complaint: Abnormal Lab Value
Time Seen by Provider: 06/22/24 15:51
History of Present Illness
History of Present Illness:
58-year-old man with history of DVT on Coumadin for an INR check. Pain here 4 days ago and it was elevated. He stopped taking the Coumadin. He is presenting today for repeat check he does note that he is more easily bruised today. No bleeding
noticed. No headache. No lightheadedness or dizziness. Otherwise feels fine. He has been on Coumadin for about a month and has never had issues up until Tuesday.
Past History
Past History
ED Past Medical History: HTN and Other (Gout, malnutrition, alcohol use with B12/folate deficiency. cardiomyopathy, elevated LFt's, Bronchitis with rib fracture)
ED Past Surgical History: Cholecystectomy and Other (Hernia)
Patient has exhibited threatening behavior?: No
Social History
Tobacco: Non-smoker
Alcohol: Daily (Vodka 6 oz)
Drug: Marijuana
Personal:
Living: with roommate (Resides with a roommate)
Employment: Employed
Family History
Family History: Other (Noncontributory)
Phy Exam
Physical Exam
Physical Exam:
GENERAL: in no acute distress
HEENT: normocephalic, extraocular movements intact, moist oral mucosa
NECK: normal inspection
RESPIRATORY: no respiratory distress, clear to auscultation bilaterally
CARDIOVASCULAR: regular rate and rhythm
ABDOMEN/: soft, non-distended, non-tender to palpation, no rebound or guarding
EXTREMITIES: non-tender, no edema/swelling, bruising to the left extremity
NEUROLOGIC: awake and alert, moves all extremities
SKIN: warm
Course
Orders/Labs/Results
Orders:
Orders
06/22/24 15:39
Prothrombin Time Routine
06/22/24 17:13
Phytonadione [Mephyton] 2.5 mg PO NOW STA
Abnormal Lab Results
06/22/24
15:39
PT 84.9 H Sec
(11.4-14.6)
INR > 8.0 H*
Vital Signs
Initial and Last Documented VS:
Initial Vital Signs
Temp Pulse Resp BP Pulse Ox
98.1 F 72 16 143/94 96
06/22/24 13:57 06/22/24 13:57 06/22/24 13:57 06/22/24 13:57 06/22/24 13:57
Last Documented Vital Signs
Temp Pulse Resp BP Pulse Ox
98.1 F 67 16 144/78 100
06/22/24 13:57 06/22/24 18:24 06/22/24 18:24 06/22/24 18:24 06/22/24 18:24
MDM/Problems Addressed
Differential Diagnosis Includes:
58-year-old man senting to the emergency department for an INR check. vitals are unremarkable and exam does show old bruising to the upper extremity. No signs of active bleeding on exam. will proceed with INR level
*Critical Care Note
Total Time (30-74mins, 75-104mins- exclusive of procedures): Not Applicable
Update Note
Update Note:
INR level elevated at greater than 8. After shared decision making we will give oral 2.5 mg of vitamin K. He is aware to hold off on resuming Coumadin. Patient aware to follow-up with repeat blood work done on Tuesday. He will discuss with his
team. Strict return precautions given. Lab slip also given. Will discharge at this time
ED Attending Note
-
Portions of this chart may have been created with voice recognition software.� Occasional wrong word or��sound alike� substitutions may have occurred due to the inherent limitations of voice recognition software.
Discharge Plan
Departure
Patient Disposition: Home (Routine Discharge)
Date of Disposition: 06/22/24
Time of Disposition: 18:41
Patient with high blood pressure during this ER visit?: No
Discharge Problem:
Elevated INR
Instructions: Prothrombin time and INR (PT/INR)
Prescriptions:
No Action
thiamine HCl (vitamin B1) 100 mg Tablet
100 mg PO BID Qty: 60 0RF
folic acid 1 mg Tablet
1 mg PO DAILY Qty: 30 0RF
enoxaparin [Lovenox] 80 mg/0.8 mL syringe
80 mg SC Q12H Qty: 8 0RF
warfarin 5 mg tablet
5 mg PO DAILY Qty: 30 0RF
Referrals:
UNKNOWN - PT DOES,NOT KNOW [Family Provider] -
Activity Restrictions/Additional Instructions:
You were seen in the Emergency Department today for elevated INR. While you were here we performed blood work, which did show an INR level that was elevated. Vitamin K was given. Please do not take your Coumadin. Please get repeat blood work done
on Tuesday. I did give you a lab slip.
We would like for you to follow up with your primary care physician for further evaluation. If you experience fever, worsening of your symptoms, or develop any other new or concerning symptoms, please return to the Emergency Department immediately.
Please see the attached sheet for additional information.
Interventions
Interventions:
*Risk Screen - Suicide Last Done: 06/22/24 13:57
*General Assessment Last Done: 06/22/24 13:57
*Neglect/Abuse Screening Last Done: 06/22/24 13:57
Discharge Date and Time
Print Language: SLOVENIAN
[2024-06-22 16:23] LABS: PT 84.9 Sec (11.4-14.6)
[2024-06-22 16:28] LABS: INR > 8.0
--- NOTE | 2024-06-22 17:11 | EDRN ---
Pharmacy aware of med order.
[2024-06-22] MEDS: MEPHYTON 2.5 MG PO (17:34)
[2024-06-22 18:24] VITALS: BP 144/78
== END 2024-06-22 19:08 | disposition home or self-care (01) ==
LOC: EMR 13:53
PROVIDERS: EMERGENCY PHYSICIAN Student in an Organized Health Care Education/Training Program
DX: R79.1 Abnormal coagulation profile (principal); I10 Essential (primary) hypertension; F10.90 Alcohol use, unspecified, uncomplicated; E53.8 Deficiency of other specified B group vitamins; R79.89 Other specified abnormal findings of blood chemistry; I42.9 Cardiomyopathy, unspecified; Z79.01 Long term (current) use of anticoagulants; Z86.718 Personal history of other venous thrombosis and embolism; Z90.49 Acquired absence of other specified parts of digestive tract
CPT/HCPCS: 99282; 85610

== ENCOUNTER 2024-07-21 10:50 | Emergency (ER) | payer MEDICAID, SELFPAY ==
[2024-07-21 10:52] VITALS: BP 153/88
--- NOTE | 2024-07-21 11:19 | ED.GENMED ---
History of Present Illness
General
Chief Complaint: Skin Problem
Source: patient
Time Seen by Provider: 07/21/24 11:11
History of Present Illness
History of Present Illness:
58yoM with a history of DVT on Coumadin presenting for evaluation of right leg swelling and redness. Symptoms began about 1 week ago. He reports being on his feet a lot recently and he believes that is what is causing his symptoms. He denies any
pain to the leg. He was seen by his PCP yesterday who advised him to go to the ED for a venous duplex. He had transportation issues and he was unable to come until today. Patient denies any chest pain or shortness of breath. He has a history of a
proximal L DVT in April 2024 which required thrombectomy.
Past History
Past History
ED Past Medical History: HTN and Other (Gout, malnutrition, alcohol use with B12/folate deficiency. cardiomyopathy, elevated LFt's, Bronchitis with rib fracture)
ED Past Surgical History: Cholecystectomy and Other (Hernia)
Patient has exhibited threatening behavior?: No
Social History
Tobacco: Non-smoker
Alcohol: Daily (Vodka 6 oz)
Drug: Marijuana
Personal:
Living: with roommate (Resides with a roommate)
Employment: Employed
Family History
Family History: Other (Noncontributory)
Phy Exam
General Physical Exam
General Presentation: well appearing and no apparent distress
General age: appears stated age
General Skin: warm and dry
General Habitus: normal
General Mental: alert
Cardiovascular Exam
Cardiovascular Exam: regular rate/rhythm
Pulmonary Exam
Pulmonary Exam: no respiratory distress
Musculoskeletal Exam
Musculoskeletal Exam: other (2+ pitting edema to R lower leg with anterior erythema and warmth. No wounds or fluctuance present. No tenderness to lower leg. 2+ DP pulse.)
Skin Exam
Skin Exam: warm/dry
Psychiatric Exam
Psychiatric Exam: normal mood/affect
Course
Orders/Labs/Results
Orders:
Orders
07/21/24 11:18
Venous Doppler Lwr Ext Rt [US Periph Venous LOWER Ext RT] Urgent
Comment:
Reason For Exam: Calf swelling, redness, hx of DVT
07/21/24 11:35
Complete Blood Count/With Diff Urgent
Comprehensive Metabolic Panel Urgent
PTT Urgent
Prothrombin Time Urgent
Abnormal Lab Results
07/21/24
11:35
RBC 4.15 L 10^6/uL
(4.70-6.10)
MCV 103.4 H fL
(80.0-94.0)
MCH 34.5 H pg
(27.0-31.0)
RDW 14.7 H %
(11.5-14.5)
Absolute Lymphs (auto) 1.0 L 10^3/uL
(1.2-3.4)
Neutrophils % 78.3 H %
(42.2-75.2)
Lymphocytes % 13.6 L %
(20.5-51.1)
PT 15.0 H Sec
(11.4-14.6)
Glucose 108 H mg/dl
(70-99)
Total Protein 6.1 L g/dl
(6.3-8.2)
Albumin 3.4 L g/dl
(3.5-5.0)
07/21/24 11:35
07/21/24 11:35
Vital Signs
Initial and Last Documented VS:
Initial Vital Signs
Temp Pulse Resp BP Pulse Ox
98.4 F 69 18 153/88 100
07/21/24 10:52 07/21/24 10:52 07/21/24 10:52 07/21/24 10:52 07/21/24 10:52
Last Documented Vital Signs
Temp Pulse Resp BP Pulse Ox
98.4 F 66 30 157/81 99
07/21/24 10:52 07/21/24 13:14 07/21/24 13:14 07/21/24 13:14 07/21/24 13:14
MDM/Problems Addressed
Differential Diagnosis Includes:
58yoM here with R lower leg swelling and redness x 1 week. Hx of prior DVT on Coumadin. Sent in by PCP for concern for a DVT. No f/c. No CP/SOB. He is afebrile and hemodynamically stable. He is well appearing in no distress. There is erythema and
warmth to the R lower leg. RLE is neurovascularly intact. Differential diagnosis includes but is not limited to: cellulitis, DVT, dependent edema
Initial ED plan: Check CBC, CMP, coags, and venous duplex.
*Critical Care Note
Total Time (30-74mins, 75-104mins- exclusive of procedures): Not Applicable
Update Note
Update Note:
INR subtherapeutic at 1.2. Remainder of labs unremarkable. Venous duplex negative for DVT. No indication for hospitalization. He was started on a course of Keflex to cover for cellulitis. Advised f/u with PCP regarding his INR levels. ED return
precautions discussed. He was discharged in stable condition.
ED Attending Note
-
Portions of this chart may have been created with voice recognition software.� Occasional wrong word or��sound alike� substitutions may have occurred due to the inherent limitations of voice recognition software.
Discharge Plan
Departure
Patient Disposition: Home (Routine Discharge)
Date of Disposition: 07/21/24
Time of Disposition: 12:58
Patient with high blood pressure during this ER visit?: Yes
Discharge Problem:
Cellulitis of right lower leg
Instructions: Cellulitis (Skin Infection), Adult (DC)
Prescriptions:
New
cephalexin 500 mg capsule
500 mg PO Q6H 7 Days Qty: 28 0RF
No Action
thiamine HCl (vitamin B1) 100 mg Tablet
100 mg PO BID Qty: 60 0RF
folic acid 1 mg Tablet
1 mg PO DAILY Qty: 30 0RF
enoxaparin [Lovenox] 80 mg/0.8 mL syringe
80 mg SC Q12H Qty: 8 0RF
warfarin 5 mg tablet
5 mg PO DAILY Qty: 30 0RF
Referrals:
Laurent Puente MD, Resident [Family Provider] -
Activity Restrictions/Additional Instructions:
Take antibiotics as prescribed. Elevate your legs and use compression socks to help with swelling.
Please call your family doctor today regarding your low Coumadin level.
Return to the ER with any worsening symptoms.
Interventions
Interventions:
*Risk Screen - Suicide Last Done: 07/21/24 11:36
*General Assessment Last Done: 07/21/24 11:36
*Neglect/Abuse Screening Last Done: 07/21/24 11:36
ED- Fall Risk Assessment Last Done: 07/21/24 11:36
*ED COVID-19 Vaccine History Last Done: 07/21/24 11:36
*Nursing Disposition Last Done: 07/21/24 13:20
ED-Skin Assessment Last Done: 07/21/24 11:37
Discharge Date and Time
Discharge Date/Time: 07/21/24 13:21
Print Language: BELARUSIAN
[2024-07-21 11:52] LABS: APTT 27.8 Sec (23.4-35.0)
[2024-07-21 11:59] LABS: ALT (SGPT) 17 U/L (0-50); AST (SGOT) 46 U/L (17-59); Albumin 3.4 g/dl (3.5-5.0); Alkaline Phosphatase 93 U/L (38-126); Blood Urea Nitrogen 11 mg/dl (9-20); Calcium 8.4 mg/dl (8.4-10.2); Carbon Dioxide 27 mmol/L (22-30); Chloride 106 mmol/L (98-107); Glucose 108 mg/dl (70-99); Sodium 141 mmol/L (135-145); Total Bilirubin 0.7 mg/dl (0.2-1.3); Total Protein 6.1 g/dl (6.3-8.2); eGFR > 60.00
[2024-07-21 12:42] LABS: % Immature Granulocytes 0.4 % (0-0.5); % Lymphocytes 13.6 % (20.5-51.1); % Monocytes 6.7 % (1.7-9.3); % Neutrophils 78.3 % (42.2-75.2); Absolute Basophils 0.1 10^3/uL (0-0.2); Absolute Monocytes 0.5 10^3/uL (0.1-0.6); Absolute Neutrophils 5.5 10^3/uL (1.4-6.5); Hematocrit 42.9 % (39.0-52.0); Hemoglobin 14.3 g/dL (13.0-18.0); Mean Corp Hgb Conc. 33.3 g/dL (33.0-37.0); Mean Corpuscular Hgb 34.5 pg (27.0-31.0); Mean Corpuscular Volume 103.4 fL (80.0-94.0); Mean Platelet Volume 9.6 fL (7.4-10.4); Nucleated Red Blood Cells % 0 % (-); Platelet Count 147 10^3/uL (130-400); Red Blood Cell Count 4.15 10^6/uL (4.70-6.10); Red Cell Dist. Width 14.7 % (11.5-14.5)
[2024-07-21 13:14] VITALS: BP 157/81
== END 2024-07-21 13:21 | disposition home or self-care (01) ==
LOC: EMR 10:50
PROVIDERS: Physician Assistant; EMERGENCY PHYSICIAN Emergency Medicine
DX: L03.115 Cellulitis of right lower limb (principal); R60.0 Localized edema; I10 Essential (primary) hypertension; M10.9 Gout, unspecified; I42.9 Cardiomyopathy, unspecified; E53.8 Deficiency of other specified B group vitamins; Z79.01 Long term (current) use of anticoagulants; Z86.718 Personal history of other venous thrombosis and embolism; Z90.49 Acquired absence of other specified parts of digestive tract; Z88.0 Allergy status to penicillin
CPT/HCPCS: 99284; 80053; 85025; 85610; 85730; 93971